=== PATIENT | male | born 1970 | race Caucasian/White ===

== ENCOUNTER → 2021-01-25 | Outpatient (CLI) | payer OTHER ==
--- NOTE | 2021-01-25 11:43 | XR ---
EXAMINATION TYPE: XR spine complete AP and Lat DATE OF EXAM: 01/25/2021 COMPARISON: NONE HISTORY: Chronic pain. TECHNIQUE: Frontal and lateral views of entire spine. FINDINGS: There is slight grade 1 retrolisthesis C4 on C5. There is mild disc space narrowing C6-C7 l evel. Mild anterior spurring and disc space narrowing lower thoracic spine. Focal mild to moderate an terior spurring at L2-L3 level. Disc space heights are maintained and the lumbar spine. Vertebral bod y heights are preserved. Alignment is somewhat straightened in the lower thoracic spine. IMPRESSION: As above.
== END | disposition home or self-care (01) ==
LOC: RADXRMAIN 10:57
PROVIDERS: ATTEND Internal Medicine
DX: M50.323 Other cervical disc degeneration at C6-C7 level (principal); M43.12 Spondylolisthesis, cervical region
CPT/HCPCS: 72082

== ENCOUNTER → 2021-02-13 | Outpatient (CLI) | payer OTHER ==
--- NOTE | 2021-02-14 12:10 | CTL ---
EXAMINATION TYPE: CT Low Dose Lung DATE OF EXAM ORDERED: 02/13/2021 HISTORY: Personal history tobacco use. Lung cancer screening CT DLP: 77.[address] CTDI: 2.2 mGy Automated exposure control for dose reduction was used. SCREENING VISIT: Initial COMPARISON: None TECHNIQUE: Low dose computed tomography scan was performed through the chest at 1 mm thick sections a nd reconstructed images in the coronal plane at [address] DIAGNOSTIC QUALITY: Satisfactory FINDINGS: LUNG NODULES: None. LUNGS: COPD: Severity: Mild. There may be some mild peribronchial thickening compatible some chronic bronchi tis Fibrosis: Severity: None Lymph nodes: None Other findings: None RIGHT PLEURAL SPACE: Effusion: None Calcification: None Thickening: None Pneumothorax: None LEFT PLEURAL SPACE: Effusion: None Calcification: None Thickening: None Pneumothorax: None HEART: Heart Size: Normal Coronary calcification: Minimal Pericardial effusion: None OTHER FINDINGS: Upper abdomen: Normal Bony thorax: Normal Supraclavicular region: Normal Other: Ascending thoracic aorta at the level the main pulmonary artery measures 3.4 cm. The main pul monary artery at the bifurcation measures 3.0 cm. IMPRESSION: Negative low-dose CT chest FOLLOW UP CT CHEST RECOMMENDATION: Follow-up low-dose CT chest [address] LUNG RAD: Lung-Rad 1 Negative
== END | disposition home or self-care (01) ==
LOC: RADCTMAIN 18:27
PROVIDERS: ATTEND Internal Medicine
DX: Z12.2 Encounter for screening for malignant neoplasm of respiratory organs (principal); Z87.891 Personal history of nicotine dependence
CPT/HCPCS: 71271

== ENCOUNTER 2021-04-10 06:48 | Day surgery (SDC) | payer OTHER ==
[~2021-04-10 06:48] MED LIST: LACTATED RINGERS 1,000 ML IV SCH; LIDOCAINE 1% (10MG/ML) FOR IV START INTRADERMA PRN
[2021-04-10 07:26] VITALS: RESP 16; TEMP 97.5
[2021-04-10 07:49] LABS: Glucose,Whole Blood 188 mg/dL (75-99)
[2021-04-10] MEDS ORDERED: PROPOFOL 10 MG/ML 20 ML VIAL IV ONE (08:17)
[2021-04-10] MEDS ORDERED: LIDOCAINE 1% INJ 10MG/ML (20 ML MDV) ONE (08:17)
--- NOTE | 2021-04-10 08:38 | P.PCN ---
Date of Procedure: 04/10/21 Procedure(s) Performed: BRIEF HISTORY: Patient is a 50-year-old pleasant white male scheduled for an elective colonoscopy as a part of screening for colorectal neoplasia. PROCEDURE PERFORMED: Colonoscopy snare polypectomy. PREOPERATIVE DIAGNOSIS: Screening for colon cancer. IV sedation per Anesthesia. PROCEDURE: After informed consent was obtained, the patient, was brought into the endoscopy unit. IV sedation was administered by Anesthesia under continuous monitoring. Digital rectal examination was normal. Initially the Olympus CF-160 flexible video colonoscope was then inserted in the rectum, gradually advanced into the cecum without any difficulty. Careful examination was performed as the scope was gradually being withdrawn. Ileocecal valve and the appendiceal orifice were visualized and appeared normal. Prep was fair.. Mucosa of the cecum, appeared normal. In the ascending colon there were 2 polyps measuring 3 mm and 5 mm in size removed by snare polypectomy. In the transverse colon there were 4 polyps measuring 4-5 mm in size removed by snare polypectomy. Rest of the scattered sigmoid diverticulosis seen. ascending colon, transverse colon, descending colon, sigmoid colon, and rectum appeared normal. Retroflexion was performed in the rectum and small internal hemorrhoids were seen. The patient tolerated the procedure well. IMPRESSION: 3 mm and 5 mm 2 ascending colon polyp status post polypectomy 5 mm 4 transverse colon polyp status post polypectomy Scattered sigmoid diverticulosis Small internal hemorrhoids RECOMMENDATIONS: Findings of this examination were discussed with the patient as well as his family. He was advised to follow with the biopsy results. If the biopsy reveals adenoma he can have a repeat colonoscopy in 3 years.
[2021-04-10 08:59] VITALS: BP 157/86; PULSE 73
== END 2021-04-10 09:41 | disposition home or self-care (01) ==
LOC: ORWHC2ENDO 06:48
PROVIDERS: ATTEND Internal Medicine Gastroenterology
DX: Z12.11 Encounter for screening for malignant neoplasm of colon (principal); D12.2 Benign neoplasm of ascending colon; D12.3 Benign neoplasm of transverse colon; K64.8 Other hemorrhoids; K57.30 Diverticulosis of large intestine without perforation or abscess without bleeding
CPT/HCPCS: 88305; 45385; J2001; J2704

== ENCOUNTER 2021-10-18 18:58 | Emergency (ER) | payer OTHER ==
[2021-10-18 19:05] VITALS: TEMP 98.1
[2021-10-18] MEDS ORDERED: SODIUM CHLORIDE 0.9% 1,000 ML IV STA (20:23)
--- NOTE | 2021-10-18 20:25 | ED ---
Neuro HPI - General Chief Complaint: Extremity Problem,Nontraumatic Stated Complaint: Leg issue Time Seen by Provider: 10/18/21 19:58 Source: patient, RN notes reviewed Mode of arrival: ambulatory Limitations: no limitations - History of Present Illness Is the patient presenting with stroke symptoms?: Yes Last Known Well Date: 10/18/21 Last Known Well Time: 17:00 Initial Comments: This is a 51-year-old diabetic male who presents to the emergency department stating that he has had problems with dizziness and gait for one month. He then states that today he had numbness in his left leg from the knee down. He states the numbness seems to be getting better but he still has some numbness in the foot. He also states that the leg feels weak both at the knee and in the ankle area. There was no injury. Patient denies any other weakness. No vision or hearing disturbance. No slurred speech. No facial weakness. No significant headache - Related Data Home Medications: Home Medications Medication Instructions Recorded Confirmed Atorvastatin [Lipitor] 10 mg PO DAILY 04/08/21 04/10/21 Multivitamins, Thera [Multivitamin 1 tab PO DAILY 04/08/21 04/08/21 (formulary)] Sildenafil Citrate 100 mg PO DAILY PRN 04/08/21 04/10/21 metFORMIN HCL [Glucophage] 500 mg PO QAM 04/08/21 04/10/21 Previous Rx's Medication Instructions Recorded Aspirin 325 mg PO DAILY #30 tab 10/18/21 Magnesium Carb,Citrate,Oxide 300 mg PO DAILY #10 tablet 10/18/21 [Magnesium Complex] Potassium Chloride ER [K-Dur 20] 20 meq PO DAILY #10 tab 10/18/21 Allergies/Adverse Reactions: Allergies Allergy/AdvReac Type Severity Reaction Status Date / Time No Known Allergies Allergy Verified 10/18/21 19:05 Review of Systems ROS Statement: Those systems with pertinent positive or pertinent negative responses have been documented in the HPI. ROS Other: All systems not noted in ROS Statement are negative. General Exam - General Exam Comments Initial Comments: Patient does not appear to be ill or toxic. Limitations: no limitations General appearance: alert, in no apparent distress Head exam: Present: atraumatic, normocephalic, normal inspection Eye exam: Present: normal appearance, PERRL, EOMI. Absent: scleral icterus, con junctival injection, periorbital swelling ENT exam: Present: normal exam, mucous membranes moist Neck exam: Present: normal inspection. Absent: tenderness, meningismus, lymphadenopathy Respiratory exam: Present: normal lung sounds bilaterally. Absent: respiratory distress, wheezes, rales, rhonchi, stridor, chest wall tenderness, accessory muscle use, decreased breath sounds, prolonged expiratory Cardiovascular Exam: Present: regular rate, normal rhythm, normal heart sounds. Absent: systolic murmur, diastolic murmur, rubs, gallop, clicks GI/Abdominal exam: Present: soft, normal bowel sounds. Absent: distended, tenderness, guarding, rebound, rigid Extremities exam: Present: normal inspection, full ROM, normal capillary refill, other (Pulses are 2+ out of 4 with regards to dorsalis pedis and posterior tibial, popliteal pulses are palpable, no erythema, no evidence of vascular compromise. No evidence of infectious process). Absent: tenderness, pedal edema, joint swelling, calf tenderness Back exam: Present: normal inspection, full ROM. Absent: tenderness, muscle spasm, paraspinal tenderness, vertebral tenderness, rash noted Neurological exam: Present: alert, oriented X3, CN II-XII intact, normal gait, motor sensory deficit (Left leg as noted, mild weakness noted as well), reflexes normal. Absent: altered Expanded Neurological exam: Present: protecting the airway Patient oriented to: Present: person, place, time Speech: Present: fluid speech. Absent: receptive aphasia, expressive aphasia, total aphasia, anomia Cranial nerves: EOM's Intact: Normal, Gag Reflex: Normal, Tongue Deviation: Normal, Nystagmus: Normal, Facial Sensation: Normal, Facial Palsy with Forehead Movement: Normal, Facial Palsy without Forehead Movement: Normal Cerebellar function: Finger to Nose: Normal, Heel to Sanders: Normal (Difficult due to left leg weakness), Romberg: Abnormal Left (Difficulty with Romberg) Upper motor neuron: Angel Neglect: Normal, Pronator Drift: Normal, Babinski Sign: Normal, Sensory Extinction: Normal Sensory exam: Upper Extremity Light Touch: Normal, Upper Extremity Pin Prick: Normal, Lower Extremity Light Touch: Normal, Lower Extremity Pin Prick: Abnormal Left (Minimal sensory loss, left lower leg) DTR: Patellar (R): 2+, Patellar (L): 2+, Achilles Tendon (R): 2+, Achilles Tendon (L): 2+ Eye Response: (4) open spontaneously Motor Response: (6) obeys commands Verbal Response: (5) oriented Psychiatric exam: Present: normal affect, normal mood. Absent: depressed, agitated, anxious, flat affect, manic, homicidal ideation, suicidal ideation Skin exam: Present: warm, dry, intact, normal color. Absent: rash, cyanosis, diaphoretic, erythema, urticaria, vesicles, petechiae, pallor, mottled, abrasion Stroke MDM - Lab Data Result diagrams: 10/18/21 20:32 10/18/21 20:32 Lab Results 10/18/21 10/18/21 10/18/21 Range/Units 20:32 20:32 20:32 WBC 7.3 (3.8-10.6) k/uL RBC 4.06 L (4.30-5.90) m/uL Hgb 14.5 (13.0-17.5) gm/dL Hct 42.2 (39.0-53.0) % MCV 103.9 H (80.0-100.0) fL MCH 35.6 H (25.0-35.0) pg MCHC 34.2 (31.0-37.0) g/dL RDW 12.9 (11.5-15.5) % Plt Count 163 (150-450) k/uL MPV 8.4 Neutrophils % 46 % Lymphocytes % 38 % Monocytes % 9 % Eosinophils % 3 % Basophils % 1 % Neutrophils # 3.3 (1.3-7.7) k/uL Lymphocytes # 2.8 (1.0-4.8) k/uL Monocytes # 0.7 (0-1.0) k/uL Eosinophils # 0.2 (0-0.7) k/uL Basophils # 0.1 (0-0.2) k/uL Macrocytosis Slight PT 11.5 (9.0-12.0) sec INR 1.1 (<1.2) APTT 25.3 (22.0-30.0) sec Sodium 144 (137-145) mmol/L Potassium 3.0 L (3.5-5.1) mmol/L Chloride 100 (98-107) mmol/L Carbon Dioxide 24 (22-30) mmol/L Anion Gap 20 mmol/L BUN 15 (9-20) mg/dL Creatinine 0.70 (0.66-1.25) mg/dL Est GFR (CKD-EPI)AfAm >90 (>60 ml/min/1.73 sqM) Est GFR (CKD-EPI)NonAf >90 (>60 ml/min/1.73 sqM) Glucose 88 (74-99) mg/dL Calcium 9.8 (8.4-10.2) mg/dL Magnesium (1.6-2.3) mg/dL Total Bilirubin 1.0 (0.2-1.3) mg/dL GGT (15-73) U/L AST 267 H (17-59) U/L ALT 92 H (4-49) U/L Alkaline Phosphatase 98 (38-126) U/L Troponin I (0.000-0.034) ng/mL Total Protein 8.7 H (6.3-8.2) g/dL Albumin 4.9 (3.5-5.0) g/dL Urine Opiates Screen (NotDetected) Ur Oxycodone Screen (NotDetected) Urine Methadone Screen (NotDetected) Ur Propoxyphene Screen (NotDetected) Ur Barbiturates Screen (NotDetected) U Tricyclic Antidepress (NotDetected) Ur Phencyclidine Scrn (NotDetected) Ur Amphetamines Screen (NotDetected) U Methamphetamines Scrn (NotDetected) U Benzodiazepines Scrn (NotDetected) Urine Cocaine Screen (NotDetected) U Marijuana (THC) Screen (NotDetected) 10/18/21 10/18/21 10/18/21 Range/Units 20:32 21:37 21:47 WBC (3.8-10.6) k/uL RBC (4.30-5.90) m/uL Hgb (13.0-17.5) gm/dL Hct (39.0-53.0) % MCV (80.0-100.0) fL MCH (25.0-35.0) pg MCHC (31.0-37.0) g/dL RDW (11.5-15.5) % Plt Count (150-450) k/uL MPV Neutrophils % % Lymphocytes % % Monocytes % % Eosinophils % % Basophils % % Neutrophils # (1.3-7.7) k/uL Lymphocytes # (1.0-4.8) k/uL Monocytes # (0-1.0) k/uL Eosinophils # (0-0.7) k/uL Basophils # (0-0.2) k/uL Macrocytosis PT (9.0-12.0) sec INR (<1.2) APTT (22.0-30.0) sec Sodium (137-145) mmol/L Potassium (3.5-5.1) mmol/L Chloride (98-107) mmol/L Carbon Dioxide (22-30) mmol/L Anion Gap mmol/L BUN (9-20) mg/dL Creatinine (0.66-1.25) mg/dL Est GFR (CKD-EPI)AfAm (>60 ml/min/1.73 sqM) Est GFR (CKD-EPI)NonAf (>60 ml/min/1.73 sqM) Glucose (74-99) mg/dL Calcium (8.4-10.2) mg/dL Magnesium 1.1 L (1.6-2.3) mg/dL Total Bilirubin (0.2-1.3) mg/dL GGT 1748 H (15-73) U/L AST (17-59) U/L ALT (4-49) U/L Alkaline Phosphatase (38-126) U/L Troponin I <0.012 (0.000-0.034) ng/mL Total Protein (6.3-8.2) g/dL Albumin (3.5-5.0) g/dL Urine Opiates Screen Not Detected (NotDetected) Ur Oxycodone Screen Not Detected (NotDetected) Urine Methadone Screen Not Detected (NotDetected) Ur Propoxyphene Screen Not Detected (NotDetected) Ur Barbiturates Screen Not Detected (NotDetected) U Tricyclic Antidepress Not Detected (NotDetected) Ur Phencyclidine Scrn Not Detected (NotDetected) Ur Amphetamines Screen Not Detected (NotDetected) U Methamphetamines Scrn Not Detected (NotDetected) U Benzodiazepines Scrn Not Detected (NotDetected) Urine Cocaine Screen Not Detected (NotDetected) U Marijuana (THC) Screen Not Detected (NotDetected) - NIH Stroke Scale 1a. Level of Consciousness: (0) alert 1b. LOC Questions: (0) answers correctly 1c. LOC Commands: (0) performs tasks correctly 2. Best Gaze: (0) normal 3. Visual: (0) no visual loss 4. Facial Palsy: (0) normal symmetrical movement 5a. Motor Arm Left: (0) no drift 5b. Motor Arm Right: (0) no drift 6a. Motor Leg Left: (1) drift 6b. Motor Leg Right: (0) no drift 7. Limb Ataxia: (0) absent 8. Sensory: (1) mild/moderate sensory loss 9. Best Language: (0) no aphasia 10. Dysarthria: (0) normal 11. Extinction/Inattention: (0) no abnormality - Thrombolytic Inclusion/Exclusion Thrombolytic Inclusion Criteria: Symptom Onset < 4.5 h - Medical Decision Making The case was discussed in detail with ED attending physician. Presentation, findings, treatment plan discussed in detail. Case discussed with Dr. Odom at 8:22 PM. Code stroke called. An 8 score of 2. Patient's symptoms started at 5 PM. AMA Documentation: I, personally, had a discussion with the patient concerning their presumed diagnoses and my recommendations regarding available options for treatment. The patient understand the risks and benefits of the treatment options presented and also understands the risks of not following these recommendations and leaving the hospital against medical advice. The patient clearly has capacity to make an informed decision regarding further treatment at this time and is electing to sign out against my medical advice. Follow up arrangements were discussed with the patient and the patient was advised to consider returning to the emergency department or seeking further care should they have a worsening of their medical condition, if they should develop new or concerning symptoms, or if they should change their mind about receiving further medical care. Note that this patient is leaving AGAINST MEDICAL ADVICE. Computed tomography scan does show some evidence of chronic sinusitis. he displays no evidence of acute sinusitis. States he does have fairly severe seasonal ALLERGIES. Going to keep the patient on daily aspirin. We'll have the patient supplement his potassium. He'll need to have this rechecked by his regular doctor next week. I did discuss this with him in detail. Again, I did reiterate to the patient we are advising that he is admitted to the hospital for an MRI and neurology consultation. Patient adamantly refusing this. The case was discussed in detail with ED attending physician. Presentation, findings, treatment plan discussed in detail. Supervising physician is Dr. Odom Patient was given aspirin as directed by neurology. Patient was given follow-up instructions despite leaving AGAINST MEDICAL ADVICE. - Radiology Data Radiology results: report reviewed, image reviewed (No acute findings noted on radiographic imaging) No acute findings - EKG Data -: EKG Interpreted by Me (Read by the ED attending physician as well) EKG shows normal: sinus rhythm Rate: normal (87) Interpretation: no acute changes 10/18/21 21:24 Left axis deviation, no acute ST or T-wave changes. Consistent with pulmonary disease. There is some poor R-wave progression. Intervals are normal. Past Medical History Past Medical History: Diabetes Mellitus, Hyperlipidemia History of Any Multi-Drug Resistant Organisms: None Reported Past Surgical History: Appendectomy Past Psychological History: No Psychological Hx Reported Smoking Status: Current every day smoker Past Alcohol Use History: Abuse, Daily, Heavy Past Drug Use History: None Reported Course Vital Signs 10/18/21 10/18/21 19:03 22:37 Temperature 98.1 F Pulse Rate 109 H 89 Respiratory 20 18 Rate Blood Pressure 133/78 124/68 O2 Sat by Pulse 96 98 Oximetry - Reevaluation(s) Reevaluation #1: 10/18/21 21:25 Medical record is reviewed Symptoms are improved here in the emergency department Patient is informed of results and questions answered Patient in no distress Patient neurologically unchanged. NIH score is 2. Reevaluation #2: 10/18/21 21:25 Patient noted to have potassium of 3.0. We'll replace - Consultations Consultation #1: This case was discussed in detail with the on-call neurologist after code stroke was called. He suspects this may be due to peripheral neuropathy. He did suggest giving the patient aspirin, admission, MRI, and reevaluation. Disposition Clinical Impression: Focal neurological deficit, Dizziness, Hypokalemia, Left against medical advice Disposition: Left Against Medical Advice Condition: Stable Instructions (If sedation given, give patient instructions): Hypokalemia (ED), Paresthesia (ED), Dizziness (ED) Additional Instructions: Follow-up with your regular physician as directed. Return to the ER immediately if any symptoms worsen, new symptoms arise, or any other problems develop. Take the aspirin, 325 mg daily. Take the potassium supplementation. Call Eduardo morning to your regular doctor. You need to have her potassium rechecked next week. Also make an appointment with a neurologist as discussed. Prescriptions: Aspirin 325 mg PO DAILY #30 tab Potassium Chloride ER [K-Dur 20] 20 meq PO DAILY #10 tab Magnesium Carb,Citrate,Oxide [Magnesium Complex] 300 mg PO DAILY #10 tablet Is patient prescribed a controlled substance at d/c from ED?: No Referrals: Courtney Parra MD [Primary Care Provider] - As Soon As Possible Lori Galvan MD [REFERRING] - As Soon As Possible Time of Disposition: 22:09
[2021-10-18 20:36] LABS: Basophils # (A) 0.1 k/uL (0-0.2); Basophils % (A) 1 %; Eosinophils # (A) 0.2 k/uL (0-0.7); Eosinophils % (A) 3 %; HCT 42.2 % (39.0-53.0); HGB 14.5 gm/dL (13.0-17.5); Lymphocytes # (A) 2.8 k/uL (1.0-4.8); Lymphocytes % (A) 38 %; MCH 35.6 pg (25.0-35.0); MCHC 34.2 g/dL (31.0-37.0); MCV 103.9 fL (80.0-100.0); Macrocytosis Slight; Mean Platelet Volume 8.4; Monocytes # (A) 0.7 k/uL (0-1.0); Monocytes % (A) 9 %; Neutrophils # (A) 3.3 k/uL (1.3-7.7); Neutrophils % (A) 46 %; Platelet Count 163 k/uL (150-450); RBC 4.06 m/uL (4.30-5.90); RDW 12.9 % (11.5-15.5); WBC 7.3 k/uL (3.8-10.6)
[2021-10-18 20:46] LABS: ALT 92 U/L (4-49); AST 267 U/L (17-59); African American GFR (CKD) >90 (>60 ml/min/1.73 sqM); Albumin 4.9 g/dL (3.5-5.0); Alkaline Phosphatase 98 U/L (38-126); Anion Gap 20 mmol/L; Blood Urea Nitrogen 15 mg/dL (9-20); Calcium 9.8 mg/dL (8.4-10.2); Carbon Dioxide 24 mmol/L (22-30); Chloride 100 mmol/L (98-107); Glucose 88 mg/dL (74-99); Non-African American GFR(CKD) >90 (>60 ml/min/1.73 sqM); Sodium 144 mmol/L (137-145); Total Protein 8.7 g/dL (6.3-8.2)
[2021-10-18 20:51] LABS: INR 1.1 (<1.2); Partial Thromboplastin Time 25.3 sec (22.0-30.0); Prothrombin Time 11.5 sec (9.0-12.0)
[2021-10-18] MEDS ORDERED: POTASSIUM CHLORIDE ER 20 MEQ TAB.ER PO STA (21:24)
--- NOTE | 2021-10-18 21:28 | CT ---
EXAMINATION TYPE: CT brain wo con for TPA CT DLP: 1717.5 mGycm, Automated exposure control for dose reduction was used. DATE OF EXAM: 10/18/2021 8:43 PM COMPARISON: None. CLINICAL INDICATION:Male, 51 years old with history of Neuro deficit, acute, stroke suspected, Neuro deficit, acute, stroke suspected TECHNIQUE: Brain: Multiple axial CT images of the brain were obtained without IV contrast. FINDINGS: Brain: Extra-axial spaces: No abnormal extra-axial fluid collections. Ventricular system: Within normal limits Cerebral parenchyma: No acute intraparenchymal hemorrhage or mass effect. The ahumada-white junction is well differentiated. Cerebellum: Unremarkable. Mass effect: No evidence of midline shift. Intracranial vasculature: Atherosclerotic calcifications of the intracranial vessels. Soft tissues: Normal. Calvarium/osseous structures: No depressed skull fracture. Paranasal sinuses and mastoid air cells: Moderate near complete opacification of the right maxillary sinus along with opacified ethmoid air cells. Calculus of bilaterally. Visualized orbits: Orbital contents are intact. IMPRESSION: 1. No acute intracranial process. 2. Paranasal sinus disease correlate for acute sinusitis.
[2021-10-18] MEDS ORDERED: MAGNESIUM SULFATE-D5W PMX 1 GM in DEXTROSE/WATER 1 100ML.BAG IVPB SCH (21:30)
--- NOTE | 2021-10-18 21:30 | CT ---
EXAMINATION TYPE: CT angio head neck CT DLP: 1717.5 combined mGycm, Automated exposure control for dose reduction was used. DATE OF EXAM: 10/18/2021 9:08 PM COMPARISON: CT brain same day. CLINICAL INDICATION:Male, 51 years old with history of Neuro deficit, acute, stroke suspected, TECHNIQUE: Axially acquired helical CT angiogram of the head and neck was obtained with contrast util izing 75 cc of Isovue-370 administered intravenously. Axial images are supplemented with 3D reconstru ctions which were post-processed at an independent workstation. NASCET criteria used. FINDINGS: CTA HEAD: No evidence of acute intracranial hemorrhage, mass effect, or midline shift. The ventricles, sulci, a nd cisterns are unremarkable. The visualized portions of the internal carotid arteries, middle cerebral arteries, anterior cerebral arteries, and posterior cerebral arteries are patent. The basilar and vertebral arteries are patent. CTA NECK: Right Carotid System: The common carotid artery and external carotid artery are patent. The carotid bifurcation demonstrate s no evidence of hemodynamically significant stenosis. The remaining portions of the internal carotid artery demonstrate normal size without significant narrowing. Left Carotid System: The common carotid artery and external carotid artery are patent. The carotid bifurcation demonstrate s no evidence of hemodynamically significant stenosis. The remaining portions of the internal carotid artery demonstrate normal size without significant narrowing. Vertebral arteries are patent without evidence hemodynamically significant stenosis. There is a three-vessel aortic arch. The origins of the great vessels are patent. No evidence of hemo dynamically significant stenosis. IMPRESSION: 1. No evidence of dissection of the cervical internal carotid arteries or vertebral arteries or any e vidence of significant stenosis at the carotid bifurcations. 2. No evidence of high-grade stenosis or intracranial aneurysm.
--- NOTE | 2021-10-18 21:39 | XR ---
EXAMINATION TYPE: XR chest 1V portable DATE OF EXAM: 10/18/2021 9:23 PM COMPARISON: None TECHNIQUE: XR chest 1V portable Frontal view of the chest. CLINICAL INDICATION:Male, 51 years old with history of altered mental status; FINDINGS: Lungs/Pleura: There is no evidence of pleural effusion, focal consolidation, or pneumothorax. Pulmonary vascularity: Unremarkable. Heart/mediastinum: Cardiomediastinal silhouette is unremarkable. Musculoskeletal: No acute osseous pathology. IMPRESSION: No acute cardiopulmonary disease/process.
[2021-10-18 21:58] LABS: Magnesium 1.1 mg/dL (1.6-2.3)
[2021-10-18] MEDS ORDERED: ASPIRIN 325 MG TAB PO STA (22:08)
[2021-10-18 22:20] LABS: Amphetamine Screen,Urine Not Detected (NotDetected); Barbiturate Screen,Urine Not Detected (NotDetected); Benzodiazepines Screen,Urine Not Detected (NotDetected); Cocaine Screen,Urine Not Detected (NotDetected); Methadone Screen, Urine Not Detected (NotDetected); Opiate Screen,Urine Not Detected (NotDetected); Oxycodone Screen, Urine Not Detected (NotDetected); Phencyclidine Screen,Urine Not Detected (NotDetected); Tricyclic Antidepressant,Urine Not Detected (NotDetected); Urn Cannabinoid Scrn Not Detected (NotDetected)
[2021-10-18 22:38] VITALS: BP 124/68; PULSE 89; RESP 18
== END 2021-10-18 22:38 | disposition left against medical advice (07) ==
LOC: EC 18:58
DX: I63.89 Other cerebral infarction (principal); E87.6 Hypokalemia; E78.5 Hyperlipidemia, unspecified; E11.9 Type 2 diabetes mellitus without complications; F17.200 Nicotine dependence, unspecified, uncomplicated
CPT/HCPCS: 36415; 80053; 82977; 83735; 84484; 85025; 85610; 85730; 80306; 71045; 70496; 70450; 70498; 99285; 96365; 96361; J3475; Q9967; 93005

== ENCOUNTER 2022-01-03 07:22 | Observation (INO) | payer OTHER ==
[2022-01-03] MEDS ORDERED: SODIUM CHLORIDE 0.9% 1,000 ML IV ONE (07:36)
--- NOTE | 2022-01-03 07:43 | ED ---
General Adult HPI - General Chief complaint: Fall Stated complaint: Weakness, poss neuro issue Time Seen by Provider: 01/03/22 07:25 Source: patient, RN notes reviewed, old records reviewed Mode of arrival: ambulatory Limitations: physical limitation - History of Present Illness Initial comments: 51-year-old male, alert and oriented presents via EMS after being found down. Patient states that he kept falling down because he has history of left-sided weakness. He states was in rehab at [facility] and was having delusions and was transferred to [facility] yesterday. Patient states he has not had an alcoholic beverage in 9 days. He was a daily drinker, a couple pints of vodka a day. He states was discharged from [facility] last night and states was trying to walk home when he kept falling. Patient sustained abrasions to his left elbow and left knee and left great toe. He states he was told he had a stroke here in October that caused his left-sided weakness. Denies any drug use. -: hour(s) Location: chest, left, upper extremity, lower extremity (Elbow and knee) Radiation: non-radiation Quality: aching Consistency: constant Improves with: immobilization Worsens with: movement Associated Symptoms: confusion, weakness (Left-sided weakness recent stroke) - Related Data Home Medications Medication Instructions Recorded Confirmed Atorvastatin [Lipitor] 10 mg PO DAILY 04/08/21 04/10/21 Multivitamins, Thera [Multivitamin 1 tab PO DAILY 04/08/21 04/08/21 (formulary)] Sildenafil Citrate 100 mg PO DAILY PRN 04/08/21 04/10/21 metFORMIN HCL [Glucophage] 500 mg PO QAM 04/08/21 04/10/21 Previous Rx's Medication Instructions Recorded Aspirin 325 mg PO DAILY #30 tab 10/18/21 Magnesium Carb,Citrate,Oxide 300 mg PO DAILY #10 tablet 10/18/21 [Magnesium Complex] Potassium Chloride ER [K-Dur 20] 20 meq PO DAILY #10 tab 10/18/21 Allergies Allergy/AdvReac Type Severity Reaction Status Date / Time No Known Allergies Allergy Verified 01/03/22 07:32 Review of Systems ROS Statement: Those systems with pertinent positive or pertinent negative responses have been documented in the HPI. ROS Other: All systems not noted in ROS Statement are negative. Past Medical History Past Medical History: Diabetes Mellitus, Hyperlipidemia History of Any Multi-Drug Resistant Organisms: None Reported Past Surgical History: Appendectomy Past Psychological History: No Psychological Hx Reported Smoking Status: Current every day smoker Past Alcohol Use History: Abuse, Daily, Heavy Past Drug Use History: None Reported General Exam Limitations: physical limitation General appearance: alert, in no apparent distress Head exam: Present: atraumatic Eye exam: Present: normal appearance, EOMI. Absent: scleral icterus, conjunctival injection, periorbital swelling, periorbital tenderness ENT exam: Present: normal exam, normal oropharynx, mucous membranes moist Expanded Mouth exam: Present: normal external inspection, tongue normal, tongue elevation. Absent: drooling, trismus, muffled voice Neck exam: Present: normal inspection, full ROM. Absent: tenderness, meningismus, lymphadenopathy Respiratory exam: Present: normal lung sounds bilaterally, chest wall tenderness (left anterior ). Absent: respiratory distress, wheezes, rales, rhonchi, stridor, accessory muscle use Cardiovascular Exam: Present: tachycardia GI/Abdominal exam: Present: soft, tenderness (diffuse). Absent: guarding, rigid Extremities exam: Present: full ROM, tenderness (left knee and left elbow), normal capillary refill. Absent: pedal edema, calf tenderness Back exam: Absent: tenderness, CVA tenderness (R), CVA tenderness (L), paraspinal tenderness, vertebral tenderness, rash noted Neurological exam: Present: alert, oriented X3 Expanded Patient oriented to: Present: person, place, time Speech: Present: fluid speech Cranial nerves: Gag Reflex: Normal, Tongue Deviation: Normal Cerebellar function: Heel to Sanders: Abnormal Left, Romberg: Normal Upper motor neuron: Pronator Drift: Normal Motor strength exam: RUE: 5, LUE: 4, RLE: 5, LLE: 4 Eye Response: (4) open spontaneously Motor Response: (6) obeys commands Verbal Response: (5) oriented [place] Total: 15 Psychiatric exam: Present: normal affect, normal mood Skin exam: Present: warm, dry, normal color, abrasion (Left elbow left knee and left great toe). Absent: cyanosis, diaphoretic Course Vital Signs 01/03/22 01/03/22 07:28 09:11 Temperature 98.5 F Pulse Rate 104 H 88 Respiratory 18 20 Rate Blood Pressure 123/79 141/102 O2 Sat by Pulse 98 99 Oximetry EKG Findings - EKG Results: EKG: sinus rhythm (Ventricular rate 93, [place] interval 0.179, QRS 0.97, QTC 0.445; left axis deviation) Medical Decision Making - Medical Decision Making Patient presents with altered mental status and multiple falls. States that he is in rehab for alcohol abuse and has not had a drink in 9 days. Per EMS patient was just discharged from [facility] last night. Medical records were obtained and patient had eloped from [facility]. CT shows no cervical spine fracture. No intracranial hemorrhage or midline shift. Chest x-ray shows cardiomegaly without acute pulmonary process no significant change from October 18 of this year. X-ray of the left elbow shows no acute fracture or dislocation. X-ray of the left knee shows joint space loss but no acute fracture or dislocation. Alcohol level, negative. UA positive for benzodiazepines. Labs show magnesium is 0.9 patient was given supplementation. LFTs are elevated and patient is complaining of diffuse abdominal pain. CT the abdomen shows no evidence of bowel obstruction. Hepatomegaly with fatty infiltrative hepatocellular disease is noted. No surrounding ascites or biliary dilatation. Patient will be admitted to the hospital for hypomagnesemia with frequent falls. Patient is agreeable to this plan of care. Case discussed with Dr. Adams. - Lab Data Result diagrams: 01/03/22 07:50 01/03/22 07:50 Lab Results 01/03/22 01/03/22 01/03/22 Range/Units 07:50 07:50 07:50 WBC 5.2 (3.8-10.6) k/uL RBC 3.99 L (4.30-5.90) m/uL Hgb 14.2 (13.0-17.5) gm/dL Hct 42.1 (39.0-53.0) % MCV 105.4 H (80.0-100.0) fL MCH 35.5 H (25.0-35.0) pg MCHC 33.7 (31.0-37.0) g/dL RDW 13.1 (11.5-15.5) % Plt Count 97 L (150-450) k/uL MPV 9.2 Neutrophils % 73 % Lymphocytes % 17 % Monocytes % 7 % Eosinophils % 1 % Basophils % 1 % Neutrophils # 3.8 (1.3-7.7) k/uL Lymphocytes # 0.9 L (1.0-4.8) k/uL Monocytes # 0.4 (0-1.0) k/uL Eosinophils # 0.1 (0-0.7) k/uL Basophils # 0.0 (0-0.2) k/uL Manual Slide Review Performed Macrocytosis Slight PT 12.8 H (9.0-12.0) sec INR 1.2 H (<1.2) APTT 23.9 (22.0-30.0) sec Sodium (137-145) mmol/L Potassium (3.5-5.1) mmol/L Chloride (98-107) mmol/L Carbon Dioxide (22-30) mmol/L Anion Gap mmol/L BUN (9-20) mg/dL Creatinine (0.66-1.25) mg/dL Est GFR (CKD-EPI)AfAm (>60 ml/min/1.73 sqM) Est GFR (CKD-EPI)NonAf (>60 ml/min/1.73 sqM) Glucose (74-99) mg/dL Calcium (8.4-10.2) mg/dL Magnesium (1.6-2.3) mg/dL Total Bilirubin (0.2-1.3) mg/dL AST (17-59) U/L ALT (4-49) U/L Alkaline Phosphatase (38-126) U/L Troponin I (0.000-0.034) ng/mL Total Protein (6.3-8.2) g/dL Albumin (3.5-5.0) g/dL Urine Color Urine Appearance (Clear) Urine pH (5.0-8.0) Ur Specific [place] (1.001-1.035) Urine Protein (Negative) Urine Glucose (UA) (Negative) Urine Ketones (Negative) Urine Blood (Negative) Urine Nitrite (Negative) Urine Bilirubin (Negative) Urine Urobilinogen (<2.0) mg/dL Ur Leukocyte Esterase (Negative) Urine RBC (0-5) /hpf Urine WBC (0-5) /hpf Ur Squamous Epith Cells (0-4) /hpf Urine Mucus (None) /hpf Urine Opiates Screen Not Detected (NotDetected) Ur Oxycodone Screen Not Detected (NotDetected) Urine Methadone Screen Not Detected (NotDetected) Ur Propoxyphene Screen Not Detected (NotDetected) Ur Barbiturates Screen Not Detected (NotDetected) U Tricyclic Antidepress Not Detected (NotDetected) Ur Phencyclidine Scrn Not Detected (NotDetected) Ur Amphetamines Screen Not Detected (NotDetected) U Methamphetamines Scrn Not Detected (NotDetected) U Benzodiazepines Scrn Detected H (NotDetected) Urine Cocaine Screen Not Detected (NotDetected) U Marijuana (THC) Screen Not Detected (NotDetected) Serum Alcohol mg/dL 01/03/22 01/03/22 01/03/22 Range/Units 07:50 07:50 07:50 WBC (3.8-10.6) k/uL RBC (4.30-5.90) m/uL Hgb (13.0-17.5) gm/dL Hct (39.0-53.0) % MCV (80.0-100.0) fL MCH (25.0-35.0) pg MCHC (31.0-37.0) g/dL RDW (11.5-15.5) % Plt Count (150-450) k/uL MPV Neutrophils % % Lymphocytes % % Monocytes % % Eosinophils % % Basophils % % Neutrophils # (1.3-7.7) k/uL Lymphocytes # (1.0-4.8) k/uL Monocytes # (0-1.0) k/uL Eosinophils # (0-0.7) k/uL Basophils # (0-0.2) k/uL Manual Slide Review Macrocytosis PT (9.0-12.0) sec INR (<1.2) APTT (22.0-30.0) sec Sodium 139 (137-145) mmol/L Potassium 3.0 L (3.5-5.1) mmol/L Chloride 98 (98-107) mmol/L Carbon Dioxide 22 (22-30) mmol/L Anion Gap 19 mmol/L BUN 14 (9-20) mg/dL Creatinine 0.71 (0.66-1.25) mg/dL Est GFR (CKD-EPI)AfAm >90 (>60 ml/min/1.73 sqM) Est GFR (CKD-EPI)NonAf >90 (>60 ml/min/1.73 sqM) Glucose 192 H (74-99) mg/dL Calcium 9.8 (8.4-10.2) mg/dL Magnesium 0.9 L* (1.6-2.3) mg/dL Total Bilirubin 3.4 H (0.2-1.3) mg/dL AST 272 H (17-59) U/L ALT 76 H (4-49) U/L Alkaline Phosphatase 130 H (38-126) U/L Troponin I <0.012 (0.000-0.034) ng/mL Total Protein 8.4 H (6.3-8.2) g/dL Albumin 4.6 (3.5-5.0) g/dL Urine Color Dark Yellow Urine Appearance Clear (Clear) Urine pH 6.5 (5.0-8.0) Ur Specific [place] 1.024 (1.001-1.035) Urine Protein 1+ H (Negative) Urine Glucose (UA) Negative (Negative) Urine Ketones 2+ H (Negative) Urine Blood Small H (Negative) Urine Nitrite Negative (Negative) Urine Bilirubin 1+ H (Negative) Urine Urobilinogen >12.0 (<2.0) mg/dL Ur Leukocyte Esterase Negative (Negative) Urine RBC 31 H (0-5) /hpf Urine WBC 3 (0-5) /hpf Ur Squamous Epith Cells <1 (0-4) /hpf Urine Mucus Moderate H (None) /hpf Urine Opiates Screen (NotDetected) Ur Oxycodone Screen (NotDetected) Urine Methadone Screen (NotDetected) Ur Propoxyphene Screen (NotDetected) Ur Barbiturates Screen (NotDetected) U Tricyclic Antidepress (NotDetected) Ur Phencyclidine Scrn (NotDetected) Ur Amphetamines Screen (NotDetected) U Methamphetamines Scrn (NotDetected) U Benzodiazepines Scrn (NotDetected) Urine Cocaine Screen (NotDetected) U Marijuana (THC) Screen (NotDetected) Serum Alcohol <10 mg/dL Disposition Clinical Impression: Fall, Hypomagnesemia, Elevated liver enzymes Disposition: ADMITTED IP TO THIS [facility] Referrals: Courtney Parra MD [Primary Care Provider] - 1-2 days Decision Date: 01/03/22 Decision Time: 09:25
[2022-01-03 08:08] LABS: Basophils % (A) 1 %; Eosinophils # (A) 0.1 k/uL (0-0.7); Eosinophils % (A) 1 %; HCT 42.1 % (39.0-53.0); HGB 14.2 gm/dL (13.0-17.5); Lymphocytes # (A) 0.9 k/uL (1.0-4.8); Lymphocytes % (A) 17 %; MCH 35.5 pg (25.0-35.0); MCHC 33.7 g/dL (31.0-37.0); MCV 105.4 fL (80.0-100.0); Macrocytosis Slight; Mean Platelet Volume 9.2; Monocytes # (A) 0.4 k/uL (0-1.0); Monocytes % (A) 7 %; Neutrophils # (A) 3.8 k/uL (1.3-7.7); Neutrophils % (A) 73 %; RBC 3.99 m/uL (4.30-5.90); RDW 13.1 % (11.5-15.5); WBC 5.2 k/uL (3.8-10.6)
[2022-01-03 08:09] LABS: INR 1.2 (<1.2); Partial Thromboplastin Time 23.9 sec (22.0-30.0); Prothrombin Time 12.8 sec (9.0-12.0)
[2022-01-03 08:29] LABS: ALT 76 U/L (4-49); AST 272 U/L (17-59); African American GFR (CKD) >90 (>60 ml/min/1.73 sqM); Albumin 4.6 g/dL (3.5-5.0); Alcohol <10 mg/dL; Alkaline Phosphatase 130 U/L (38-126); Anion Gap 19 mmol/L; Blood Urea Nitrogen 14 mg/dL (9-20); Calcium 9.8 mg/dL (8.4-10.2); Carbon Dioxide 22 mmol/L (22-30); Chloride 98 mmol/L (98-107); Glucose 192 mg/dL (74-99); Non-African American GFR(CKD) >90 (>60 ml/min/1.73 sqM); Sodium 139 mmol/L (137-145); Total Bilirubin 3.4 mg/dL (0.2-1.3); Total Protein 8.4 g/dL (6.3-8.2)
--- NOTE | 2022-01-03 08:36 | CT ---
EXAMINATION TYPE: CT brain cspine wo con DATE OF EXAM: 01/03/2022 COMPARISON: CT brain October 18, 2021 HISTORY: Fall injury with headache and neck pain. CT DLP: 1497.5 mGycm. Automated Exposure Control for Dose Reduction was Utilized. TECHNIQUE: CT scan of the head and cervical spine are performed without contrast. FINDINGS: There is no acute intracranial hemorrhage or midline shift identified. Mild to moderate v entricular and sulcal prominence is present. The calvarium is intact. Figueroa-white matter differentiati on fairly well-maintained. Patchy opacification of the ethmoid sinuses bilaterally redemonstrated imp roved from prior. Mild/moderate mucosal thickening and some patchy fluid in the right maxillary sinus improved from prior. Globes are intact bilaterally. Cervical spine is visualized in its entirety from C1 through upper thoracic levels and demonstrates s atisfactory alignment without evidence of acute fracture or dislocation. Prevertebral soft tissue ap pears within normal limits. The C1-C2 articulation is within normal limits on the coronal images. V ertebral body heights are maintained. Mild disc space narrowing C6-C7 level. Spinal canal grossly pre served. Thyroid gland appears within normal limits. Lung apices show no pneumothorax. IMPRESSION: 1. There is no acute fracture or dislocation evident in the cervical spine. 2. No acute intracranial hemorrhage or midline shift is seen.
[2022-01-03 08:41] LABS: Magnesium 0.9 mg/dL (1.6-2.3)
[2022-01-03] MEDS ORDERED: Magnesium Replacement Protocol 1 EACH MISC MISCELLANE PRN (08:42)
[2022-01-03] MEDS ORDERED: POTASSIUM CHLORIDE ER 20 MEQ TAB.ER PO STA (08:43)
[2022-01-03 08:44] LABS: Platelet Count 97 k/uL (150-450)
[2022-01-03 08:52] LABS: Appearance,Urine Clear (Clear); Bilirubin,Urine 1+ (Negative); Blood,Urine Small (Negative); Color,Urine Dark Yellow; Glucose,Urine (UA) Negative (Negative); Ketones,Urine 2+ (Negative); Leukocyte Esterase,Urine Negative (Negative); Mucus,Urine Moderate /hpf; Nitrite,Urine Negative (Negative); PH, Urine 6.5 (5.0-8.0); Protein,Urine 1+ (Negative); RBC,Urine 31 /hpf (0-5); Specific Gravity,Urine 1.024 (1.001-1.035); Squamous Epithelial Cell,Urine <1 /hpf (0-4); Urobilinogen,Urine >12.0 mg/dL (<2.0); WBC,Urine 3 /hpf (0-5)
--- NOTE | 2022-01-03 08:52 | XR ---
EXAMINATION TYPE: XR knee complete LT DATE OF EXAM: 01/03/2022 CLINICAL HISTORY: Pain. TECHNIQUE: Three views of the left knee are obtained. COMPARISON: None. FINDINGS: There is no acute fracture/dislocation evident in left knee. Mild to moderate tricompartme nt joint space loss. No significant spurring. The overlying soft tissue appears unremarkable. IMPRESSION: As above.
--- NOTE | 2022-01-03 08:52 | XR ---
EXAMINATION TYPE: XR chest 2V DATE OF EXAM: 01/03/2022 COMPARISON: Chest x-ray October 18, 2021 HISTORY: Altered mental status and weakness. TECHNIQUE: Upright Frontal and lateral views of the chest are obtained. FINDINGS: There is no suspicious new focal air space opacity, pleural effusion, or pneumothorax seen . The cardiac silhouette size is stable and enlarged. The osseous structures are intact. Overlying bilateral metallic nipple ornaments are redemonstrated IMPRESSION: Cardiomegaly without acute pulmonary process. No significant change from prior.
--- NOTE | 2022-01-03 08:53 | XR ---
EXAMINATION TYPE: XR elbow complete LT DATE OF EXAM: 01/03/2022 CLINICAL HISTORY: Pain. TECHNIQUE: Frontal, lateral and oblique images of the left elbow are obtained. COMPARISON: None FINDINGS: There is no acute fracture/dislocation evident in the left elbow. No abnormal fat pad sig ns are seen. Cubital fossa peripheral IV incidentally noted. IMPRESSION: As above.
[2022-01-03 08:55] LABS: Amphetamine Screen,Urine Not Detected (NotDetected); Barbiturate Screen,Urine Not Detected (NotDetected); Benzodiazepines Screen,Urine Detected (NotDetected); Cocaine Screen,Urine Not Detected (NotDetected); Methadone Screen, Urine Not Detected (NotDetected); Opiate Screen,Urine Not Detected (NotDetected); Oxycodone Screen, Urine Not Detected (NotDetected); Phencyclidine Screen,Urine Not Detected (NotDetected); Tricyclic Antidepressant,Urine Not Detected (NotDetected); Urn Cannabinoid Scrn Not Detected (NotDetected)
[2022-01-03] MEDS: MAGNESIUM SULFATE-D5W PMX 1 GM in DEXTROSE/WATER 1 100ML.BAG IVPB SCH ×4 (09:07→12:40)
--- NOTE | 2022-01-03 09:22 | CT ---
EXAMINATION TYPE: CT abdomen pelvis w con DATE OF EXAM: 01/03/2022 COMPARISON: None. HISTORY: Upper and lower Abdominal pain. Recent several falls. CT DLP: 958.5 mGycm, Automated Exposure Control for Dose Reduction was Utilized. CONTRAST: CT scan of the abdomen and pelvis is performed without oral and with IV Contrast, patient injected wi th 100 mL of Isovue 300. FINDINGS: LUNG BASES: No significant abnormality is appreciated. LIVER/GB: Visualized liver heterogeneously hypodense consistent with fatty infiltrative hepatocellula r disease. Hepatomegaly is present. No surrounding ascites. No biliary dilatation. PANCREAS: No significant abnormality is seen. SPLEEN: No significant abnormality is seen. ADRENALS: No significant abnormality is seen. KIDNEYS: No significant abnormality is seen. BOWEL: Suboptimal evaluation without enteric contrast. Stomach poorly distended and suboptimally eval uated. No suspicious small or large bowel dilatation. PROSTATE/SEMINAL VESICLES: No gross abnormality seen. LYMPH NODES: No greater than 1cm abdominal or pelvic lymph nodes are appreciated. OSSEOUS STRUCTURES: No significant abnormality is seen. OTHER: No significant additional abnormality is seen. IMPRESSION: No significant acute finding is seen to account for patient's clinical symptoms. No riley l obstruction is present. Hepatomegaly with fatty infiltrative hepatocellular disease is noted.
[2022-01-03] MEDS ORDERED: ONDANSETRON 4 MG/2 ML VIAL IVP PRN (09:31)
[2022-01-03] MEDS ORDERED: NALOXONE 0.4 MG/ML 1 ML VIAL IV PRN (09:31)
[2022-01-03] MEDS: PANTOPRAZOLE 40 MG/10 ML VIAL IV SCH (10:05)
[2022-01-03] MEDS: SODIUM CHLORIDE 0.9% 1,000 ML IV SCH (10:05)
[2022-01-03] MEDS ORDERED: KETOROLAC 15 MG/ML 1 ML VIAL IVP STA (10:34)
[2022-01-03] MEDS: HYDROcodone/APAP 5-325MG 1 EACH TAB PO PRN ×2 (11:47→17:49)
[2022-01-03] MEDS ORDERED: MELATONIN 3 MG TABLET PO PRN (12:07)
[2022-01-03] MEDS ORDERED: ACETAMINOPHEN TAB 325 MG TAB PO PRN (12:07)
--- NOTE | 2022-01-03 12:13 | P.HPIM ---
History of Present Illness H&P Date: 01/03/22 Chief Complaint: falls Patient is a 51 yo male with DM, HTN, and alcoholism who presented to the ED via EMS for falls and weakness. Patient was found outside on ground and was confused and unable to stand. In the Emergency department he underwent an extensive evaluation. On arrival he was slightly tachycardiac with a HR of 104. Initial labs were remarkable for plt 97, INR 1.2, K+ 3, Magnesium 0.9, T. bili 3.4, ast 272, alt 76, and alk phos 130. UDS was positive for benzodiazepines. Alcohol level was undetectable. CT head and cervical spine showed no acute fracture or dislocation of the cervical spine and no acute intrancranial hemorrhage. CXR shows no acute process. Elbow x-ray shows no acute fracture.Knee x-ray mild to moderate tricompartment joint space loss. CT abd and pelvis no acute finding hepatomegally with infiltrative hepatocellular disease.EKG show sinus arrhythmia. In the ED he was given magnesium and potassium replacements. Arrangements were made for observation. Patient initially told me that he has been living at a big house and that 2 people just left. He also initally tells me that he has been at [facility], [facility], and [facility]. He then says he was not a patient at those places. Records were received from [facility] and he left AMA form their ER this morning. He left before they called [facility]. Patient seen and examined at bedside. He reports thats that he has been falling alot. He states that he has been tripping over his left foot. He reports that his left foot numbness and weakness started years years ago after he was drinking a fifth daily. He reports that recently he has been experiencing some numbness in his right foot. He states that he isn't falling. He reports that his last drink was 9 weeks ago. He reports back pain that has been chronic for years and unremitting. He states he has fallen multiple times possibly 20 times. He was initially confused about where he was at menses was at [facility]. He reports constipation but has been able to have bowel movements on his own and has not been using laxatives. He denies any dysuria. He denies any syncope, lightheadedness, dizziness, chest pain, shortness of breath. He denies any nausea or vomiting. He reports that he follows with Dr. Parra his primary care physician that his hypertension and diabetes are well controlled. He states that he has not been evaluated for his left lower extremity weakness. Pertinent positives and negatives as discussed in HPI, a complete review of systems was performed and all other systems are negative. Vital signs reviewed General: nontoxic, no distress, appears at stated ag, disheveled Derm: warm, dry, abrasion on his left knee, abrasion on hif left great toe. Head: atraumatic, normocephalic, symmetric Eyes: EOMI, no lid lag, anicteric sclera, pupils equal round reactive to light ENT: Nose and ears atraumatic, no thrush, no pharyngeal erythema Neck: No thyromegaly, no cervical lymphadenopathy, trachea midline, supple Mouth: no lip lesion, mucus membranes moist Cardiovascular: S1S2 reg, no murmur, positive posterior tibial pulse bilateral, no edema, capillary refill less than 2 seconds Lungs: clear to auscultation bilateral, no rhonchi, no rales, no wheeze, no accessory muscle use Abdominal: soft, nontender to palpation, no guarding, no appreciable organomegaly, normal bowel sounds Ext: no gross muscle atrophy, muscle strength 5 out of 5 upper extremities, hip flexion 5/5 b/l, dorsiand plantar fleion 5/5 in R foot, 0/5 in left foot- appears to be able to move foot and bear weight on it when shifting in bed. No contracture Neuro: CN II-XII grossly intact, light touch intact all 4 extremities and feet, finger to nose within normal limits, Psych: Alert, oriented, appropriate affect Assessment/Plan: Weakness Multiple falls Hypomagnesemia, Hypokalemia - replace Mg and potassium - consult PT/OT - Thiamine supplementation - check B 1 level Possible foot drop on left - appears chronic per patient - outpatient work-up Tobacco - replacement - cessation Thrombocytopenia - likely due to ETOH intoxication Transaminitis - suspect due to ETOH use - Liver US without fatty infiltration - check hepatitis profile Recent ETOH abuse - thiamine, folic acid The patient is admitted with an anticipated less than 2 midnight stay for evaluation of falls. Surrogate decision-maker: CODE STATUS:full DVT prophylaxis: SCDs Discussed with: PT, ED provider Anticipated discharge date: in AM Anticipated discharge place: home A total of 65 minutes was spent on the care of this complex patient more than 50% of the time was spent in counseling and care coordination. Past Medical History Past Medical History: Diabetes Mellitus, Hyperlipidemia History of Any Multi-Drug Resistant Organisms: None Reported Past Surgical History: Appendectomy Past Psychological History: No Psychological Hx Reported Smoking Status: Current every day smoker Past Alcohol Use History: Abuse, Daily, Heavy Past Drug Use History: None Reported - Past Family History Father Additional Family Medical History / Comment(s): prostate cancer Medications and Allergies Home Medications Medication Instructions Recorded Confirmed Type Atorvastatin [Lipitor] 10 mg PO DAILY 04/08/21 01/03/22 History Aspirin 325 mg PO DAILY #30 tab 10/18/21 01/03/22 Rx Potassium Chloride ER [K-Dur 20] 20 meq PO DAILY #10 tab 10/18/21 01/03/22 Rx Famotidine 20 mg PO DAILY 01/03/22 01/03/22 History Insulin Glargine,Hum.rec.anlog 10 units SQ DAILY 01/03/22 01/03/22 History [Lantus Solostar Pen] metFORMIN HCL [Glucophage] 1,000 mg PO BID 01/03/22 01/03/22 History Allergies Allergy/AdvReac Type Severity Reaction Status Date / Time No Known Allergies Allergy Verified 01/03/22 10:14 Physical Exam Osteopathic Statement: *. No significant issues noted on an osteopathic structural exam other than those noted in the History and Physical/Consult. Vitals: Vital Signs Temp Pulse Resp BP Pulse Ox 01/03/22 11:39 88 16 124/77 97 01/03/22 10:10 83 18 134/91 98 01/03/22 09:11 88 20 141/102 99 01/03/22 07:28 98.5 F 104 H 18 123/79 98 Intake and Output 01/02/22 01/03/22 01/03/22 22:59 06:59 14:59 Other: Weight 79.379 kg Results CBC & Chem 7: 01/03/22 07:50 01/03/22 07:50 Labs: Abnormal Lab Results - Last 24 Hours (Table) 01/03/22 01/03/22 01/03/22 Range/Units 07:50 07:50 07:50 RBC 3.99 L (4.30-5.90) m/uL MCV 105.4 H (80.0-100.0) fL MCH 35.5 H (25.0-35.0) pg Plt Count 97 L (150-450) k/uL Lymphocytes # 0.9 L (1.0-4.8) k/uL PT 12.8 H (9.0-12.0) sec INR 1.2 H (<1.2) Potassium (3.5-5.1) mmol/L Glucose (74-99) mg/dL Magnesium (1.6-2.3) mg/dL Total Bilirubin (0.2-1.3) mg/dL AST (17-59) U/L ALT (4-49) U/L Alkaline Phosphatase (38-126) U/L Total Protein (6.3-8.2) g/dL Urine Protein (Negative) Urine Ketones (Negative) Urine Blood (Negative) Urine Bilirubin (Negative) Urine RBC (0-5) /hpf Urine Mucus (None) /hpf U Benzodiazepines Scrn Detected H (NotDetected) 01/03/22 01/03/22 Range/Units 07:50 07:50 RBC (4.30-5.90) m/uL MCV (80.0-100.0) fL MCH (25.0-35.0) pg Plt Count (150-450) k/uL Lymphocytes # (1.0-4.8) k/uL PT (9.0-12.0) sec INR (<1.2) Potassium 3.0 L (3.5-5.1) mmol/L Glucose 192 H (74-99) mg/dL Magnesium 0.9 L* (1.6-2.3) mg/dL Total Bilirubin 3.4 H (0.2-1.3) mg/dL AST 272 H (17-59) U/L ALT 76 H (4-49) U/L Alkaline Phosphatase 130 H (38-126) U/L Total Protein 8.4 H (6.3-8.2) g/dL Urine Protein 1+ H (Negative) Urine Ketones 2+ H (Negative) Urine Blood Small H (Negative) Urine Bilirubin 1+ H (Negative) Urine RBC 31 H (0-5) /hpf Urine Mucus Moderate H (None) /hpf U Benzodiazepines Scrn (NotDetected)
[2022-01-03 19:31] LABS: Hepatitis A Antibody IgM Nonreactive (Nonreactive); Hepatitis B Core IgM Nonreactive (Nonreactive); Hepatitis B Surface Antigen Nonreactive (Nonreactive); Hepatitis C IgG Antibody Nonreactive (Nonreactive)
[2022-01-03] MEDS ORDERED: LORazepam 1 MG/0.5 ML VIAL IV PRN ×3 (21:06)
[2022-01-03] MEDS: KETOROLAC 15 MG/ML 1 ML VIAL IVP PRN (21:07)
[2022-01-03] MEDS ORDERED: chlordiazePOXIDE 25 MG CAP PO STA (21:08)
[2022-01-04] MEDS: THIAMINE 100 MG/ML 2 ML VIAL IVP SCH ×3 (00:28→20:05)
[2022-01-04] MEDS: HYDROcodone/APAP 5-325MG 1 EACH TAB PO PRN ×3 (04:21→20:02)
[2022-01-04] MEDS: SODIUM CHLORIDE 0.9% 1,000 ML IV SCH ×2 (07:38→10:14)
[2022-01-04 07:53] LABS: HCT 36.8 % (39.0-53.0); HGB 12.2 gm/dL (13.0-17.5); MCH 34.4 pg (25.0-35.0); MCHC 33.1 g/dL (31.0-37.0); MCV 103.9 fL (80.0-100.0); Macrocytosis Slight; Platelet Count 97 k/uL (150-450); RBC 3.54 m/uL (4.30-5.90); RDW 12.7 % (11.5-15.5); WBC 5.8 k/uL (3.8-10.6)
[2022-01-04 08:02] LABS: ALT 78 U/L (4-49); AST 247 U/L (17-59); African American GFR (CKD) >90 (>60 ml/min/1.73 sqM); Albumin 3.9 g/dL (3.5-5.0); Albumin/Globulin Ratio 1.1; Alkaline Phosphatase 110 U/L (38-126); Anion Gap 11 mmol/L; Blood Urea Nitrogen 11 mg/dL (9-20); Carbon Dioxide 28 mmol/L (22-30); Chloride 98 mmol/L (98-107); Globulin 3.5 g/dL; Glucose 118 mg/dL (74-99); Magnesium 1.4 mg/dL (1.6-2.3); Non-African American GFR(CKD) >90 (>60 ml/min/1.73 sqM); Potassium 2.8 mmol/L (3.5-5.1); Sodium 137 mmol/L (137-145); Total Bilirubin 2.4 mg/dL (0.2-1.3); Total Protein 7.4 g/dL (6.3-8.2)
[2022-01-04] MEDS ORDERED: POTASSIUM CHLORIDE ER 20 MEQ TAB.ER PO STA (08:08)
[2022-01-04] MEDS: MULTIVITAMINS, THERA 1 EACH TAB PO SCH (10:12)
[2022-01-04] MEDS: NICOTINE 21MG/24HR PATCH TRANSDERM SCH (10:13)
[2022-01-04] MEDS: FOLIC ACID 1 MG TAB PO SCH (10:13)
[2022-01-04] MEDS: MAGNESIUM SULFATE-D5W PMX 1 GM in DEXTROSE/WATER 1 100ML.BAG IVPB SCH ×4 (10:13→17:09)
[2022-01-04] MEDS: PANTOPRAZOLE 40 MG/10 ML VIAL IV SCH (10:13)
[2022-01-04] MEDS: POTASSIUM CHLORIDE 10 MEQ in WATER FOR INJECTION 1 100ML.BAG IVPB SCH ×2 (10:34→14:05)
[2022-01-04] MEDS ORDERED: NICOTINE GUM (POLACRILEX) 2 MG GUM BUCCAL PRN (13:32)
--- NOTE | 2022-01-04 13:36 | P.PN ---
Subjective Progress Note Date: 01/04/22 (delayed charting seen at 0825) Patient is a 51 yo male with DM, HTN, and alcoholism who presented to the ED via EMS for falls and weakness. Patient was found outside on ground and was confused and unable to stand. In the Emergency department he underwent an extensive evaluation. On arrival he was slightly tachycardiac with a HR of 104. Initial labs were remarkable for plt 97, INR 1.2, K+ 3, Magnesium 0.9, T. bili 3.4, ast 272, alt 76, and alk phos 130. UDS was positive for benzodiazepines. Alcohol level was undetectable. CT head and cervical spine showed no acute fracture or dislocation of the cervical spine and no acute intrancranial hemorrhage. CXR shows no acute process. Elbow x-ray shows no acute fracture.Knee x-ray mild to moderate tricompartment joint space loss. CT abd and pelvis no acute finding hepatomegally with infiltrative hepatocellular disease.EKG show sinus arrhythmia. In the ED he was given magnesium and potassium replacements. Arrangements were made for observation. He continued to struggle with low potassium and magnesium and they were again replaced. Patient seen and examined at bedside. He reports that all of yesterday feels like a big blur. He remembered going to [facility] from [place], but does not recall how he ended up at [facility]. Today he denies any joint or back pain. He is unsure what he will do once he is released from the hospital. He states he from time to think about it. He does request something to help with tobacco cravings. He reports some nausea, diaphoresis, and shaking but overall does not feel as though he is having significant alcohol withdrawal. He does think he will need some type of therapy when he leaves the hospital. General: non toxic, no distress, appears at stated age Derm: warm, dry Head: atraumatic, normocephalic, symmetric Eyes: EOMI, no lid lag, anicteric sclera Mouth: no lip lesion, mucus membranes moist Cardiovascular: S1S2 reg, no murmur, positive posterior tibial pulse bilateral, Lungs: CTA bilateral, no rhonchi, no rales , no accessory muscle use Abdominal: soft, nontender to palpation, no guarding, no appreciable organomegaly Ext: no gross muscle atrophy, no edema, no contractures Neuro: CN II-XI grossly intact, no focal neuro deficits Psych: Alert, oriented, appropriate affect Assessment/plan: Weakness Multiple falls Hypomagnesemia, Hypokalemia - replace Mg and potassium, rehcek this afternoon and in AM - awiat PT/OT - Thiamine supplementation - B 1 level pending Possible foot drop on left - appears chronic per patient - outpatient work-up Tobacco - replacement - cessation Thrombocytopenia - likely due to ETOH intoxication Transaminitis - suspect due to ETOH use, improving - Liver US without fatty infiltration - Hepatitis profile negative Recent ETOH abuse - thiamine, folic acid DVT prophylaxis: SCDs Discussed with: patient Anticipated discharge: in AM Anticipated discharge place: home A total of 35 minutes was spent on the care of this complex patient more than 50% of the time was spent in counseling and care coordination. Objective - Vital Signs Vital signs: Vital Signs Temp 98.7 F 01/04/22 11:52 Pulse 71 01/04/22 11:52 Resp 20 01/04/22 11:52 BP 128/81 01/04/22 11:52 Pulse Ox 98 01/04/22 11:52 FiO2 Intake & Output 01/03/22 01/04/22 01/04/22 18:59 06:59 18:59 Intake Total 350 Balance 350 Weight 79.379 kg Intake: Oral 350 Other: Voiding Method Toilet # Voids 2 - Labs CBC & Chem 7: 01/04/22 07:07 01/04/22 07:07 Labs: Abnormal Lab Results - Last 24 Hours (Table) 01/04/22 01/04/22 Range/Units 07:07 07:07 RBC 3.54 L (4.30-5.90) m/uL Hgb 12.2 L (13.0-17.5) gm/dL Hct 36.8 L (39.0-53.0) % MCV 103.9 H (80.0-100.0) fL Plt Count 97 L (150-450) k/uL Potassium 2.8 L (3.5-5.1) mmol/L Creatinine 0.50 L (0.66-1.25) mg/dL Glucose 118 H (74-99) mg/dL Magnesium 1.4 L (1.6-2.3) mg/dL Total Bilirubin 2.4 H (0.2-1.3) mg/dL AST 247 H (17-59) U/L ALT 78 H (4-49) U/L
[2022-01-04 15:21] LABS: Magnesium 1.9 mg/dL (1.6-2.3); Potassium 3.6 mmol/L (3.5-5.1)
[2022-01-04] MEDS: KETOROLAC 15 MG/ML 1 ML VIAL IVP PRN (23:11)
[2022-01-05] MEDS: SODIUM CHLORIDE 0.9% 1,000 ML IV SCH ×2 (03:35→17:06)
[2022-01-05 06:00] LABS: HCT 35.1 % (39.0-53.0); HGB 11.6 gm/dL (13.0-17.5); MCH 34.6 pg (25.0-35.0); MCHC 33.2 g/dL (31.0-37.0); MCV 104.2 fL (80.0-100.0); Macrocytosis Slight; Mean Platelet Volume 8.9; RBC 3.36 m/uL (4.30-5.90); RDW 12.7 % (11.5-15.5); WBC 5.7 k/uL (3.8-10.6)
[2022-01-05 06:05] LABS: Platelet Count 98 k/uL (150-450)
[2022-01-05 06:11] LABS: African American GFR (CKD) >90 (>60 ml/min/1.73 sqM); Anion Gap 8 mmol/L; Blood Urea Nitrogen 11 mg/dL (9-20); Calcium 8.3 mg/dL (8.4-10.2); Carbon Dioxide 27 mmol/L (22-30); Chloride 100 mmol/L (98-107); Glucose 164 mg/dL (74-99); Magnesium 1.6 mg/dL (1.6-2.3); Non-African American GFR(CKD) >90 (>60 ml/min/1.73 sqM); Potassium 2.9 mmol/L (3.5-5.1); Sodium 135 mmol/L (137-145)
[2022-01-05] MEDS: NICOTINE 21MG/24HR PATCH TRANSDERM SCH (08:41)
[2022-01-05] MEDS: THIAMINE 100 MG/ML 2 ML VIAL IVP SCH (08:41)
[2022-01-05] MEDS: PANTOPRAZOLE 40 MG/10 ML VIAL IV SCH (08:42)
[2022-01-05] MEDS: MULTIVITAMINS, THERA 1 EACH TAB PO SCH (08:43)
[2022-01-05] MEDS: HYDROcodone/APAP 5-325MG 1 EACH TAB PO PRN (08:43)
[2022-01-05] MEDS: FOLIC ACID 1 MG TAB PO SCH (08:43)
[2022-01-05] MEDS ORDERED: POTASSIUM BICARBONATE/CIT AC 20 MEQ TABLET.EFF PO ONE (08:49)
[2022-01-05] MEDS ORDERED: POTASSIUM CHLORIDE 20 MEQ in WATER FOR INJECTION 1 100ML.BAG IVPB STA (08:49)
[2022-01-05] MEDS: MAGNESIUM SULFATE-D5W PMX 1 GM in DEXTROSE/WATER 1 100ML.BAG IVPB SCH ×4 (09:21→13:30)
[2022-01-05 11:22] VITALS: BP 108/72; PULSE 83; RESP 20; TEMP 97.5
[2022-01-05] MEDS ORDERED: POTASSIUM CHLORIDE ER 20 MEQ TAB.ER PO ONE (11:30)
[2022-01-05 15:42] LABS: Magnesium 2.5 mg/dL (1.6-2.3); Potassium 3.7 mmol/L (3.5-5.1)
--- NOTE | 2022-01-05 17:07 | P.DS ---
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 Patient was found outside on ground and was confused and unable to stand. In the Emergency department he underwent an extensive evaluation. On arrival he was slightly tachycardiac with a HR of 104. Initial labs were remarkable for plt 97, INR 1.2, K+ 3, Magnesium 0.9, T. bili 3.4, ast 272, alt 76, and alk phos 130. UDS was positive for benzodiazepines. Alcohol level was undetectable. CT head and cervical spine showed no acute fracture or dislocation of the cervical spine and no acute intrancranial hemorrhage. CXR shows no acute process. Elbow x-ray shows no acute fracture.Knee x-ray mild to moderate tricompartment joint space loss. CT abd and pelvis no acute finding hepatomegally with infiltrative hepatocellular disease.EKG show sinus arrhythmia. In the ED he was given magnesium and potassium replacements. Arrangements were made for observation. He continued to struggle with low potassium and magnesium and they were again replaced. His weakness resolved. Electrolytes normalized. He was determined stable for discharge home. Follow-up: Patient will need to continue on thiamine and folic acid for the next 30 days. He can use Motrin as needed for pain. Patient follow-up with Dr. Parra next week to discuss options for maintaining sobriety as well as possible need for further evaluation of hypokalemia and hypomagnesemia should this continue. Patient is aware of these recommendations and will call Dr. Parra's office on Sunday 01/07. Initially he had told me that he was not taking lantus or metformin at home and just monitoring his diabetes, on discharge he then states that he was taking this medications and I instructed him to continue these medications. Patient seen and examined at bedside. He is still having some left-sided chest discomfort where he fell. He denies any nausea, vomiting, diarrhea. Does not like the food here and has had a low appetite. Vital signs reviewed and stable. General: nontoxic, no distress, appears at stated age Derm: warm, dry Head: atraumatic, normocephalic, symmetric Eyes: EOMI, no lid lag, anicteric sclera Mouth: no lip lesion, mucus membranes moist Cardiovascular: S1S2 reg, no murmur, positive posterior tibial pulse bilateral, Lungs: CTA bilateral, no rhonchi, no rales , no accessory muscle use Abdominal: soft, nontender to palpation, no guarding, no appreciable organomegaly Ext: no gross muscle atrophy, no edema, no contractures Neuro: CN II-XI grossly intact, no focal neuro deficits Psych: Alert, oriented, appropriate affect A total of 35 minutes of time were spent preparing this complex discharge summary. Patient was discharged on 01/05/22. Plan - Discharge Summary New Discharge Prescriptions: New Folic Acid 1 mg PO DAILY #30 tab Potassium Chloride ER [K-Dur 20] 20 meq PO DAILY #30 tab Magnesium Oxide 400 mg PO DAILY #30 tablet Thiamine [Vitamin B-1] 100 mg PO BID #60 tablet Insulin Glargine,Hum.rec.anlog [Lantus Solostar Pen] 10 units SQ DAILY #5 each metFORMIN HCL 1,000 mg PO BID #60 tablet Ibuprofen [Motrin] 600 mg PO Q8HR PRN #30 tab PRN Reason: Pain Continue Atorvastatin [Lipitor] 10 mg PO DAILY Famotidine 20 mg PO DAILY Discontinued Aspirin 325 mg PO DAILY #30 tab metFORMIN HCL [Glucophage] 1,000 mg PO BID Potassium Chloride ER [K-Dur 20] 20 meq PO DAILY #10 tab Insulin Glargine,Hum.rec.anlog [Lantus Solostar Pen] 10 units SQ DAILY Discharge Medication List Atorvastatin [Lipitor] 10 mg PO DAILY 04/08/21 [History] Famotidine 20 mg PO DAILY 01/03/22 [History] Folic Acid 1 mg PO DAILY #30 tab 01/05/22 [Rx] Ibuprofen [Motrin] 600 mg PO Q8HR PRN #30 tab 01/05/22 [Rx] Insulin Glargine,Hum.rec.anlog [Lantus Solostar Pen] 10 units SQ DAILY #5 each 01/05/22 [Rx] Magnesium Oxide 400 mg PO DAILY #30 tablet 01/05/22 [Rx] Potassium Chloride ER [K-Dur 20] 20 meq PO DAILY #30 tab 01/05/22 [Rx] Thiamine [Vitamin B-1] 100 mg PO BID #60 tablet 01/05/22 [Rx] metFORMIN HCL 1,000 mg PO BID #60 tablet 01/05/22 [Rx] Follow up Appointment(s)/Referral(s): Courtney Parra MD [Primary Care Provider] - 1-2 days Patient Instructions/Handouts: Abuse of Alcohol (DC), Hypomagnesemia (DC) Activity/Diet/Wound Care/Special Instructions: Activity: as tolerated Diet: regular Special Instructions: Please talk with Dr. Parra about Naltrexone 50 mg daily to help maintain sobriety Your weakness is likely a combination of low potassium, magnesium, and thiamine which can become depleted with alcohol use. Discharge/Stand Alone Forms: AA Meetings [facility] Discharge Disposition: HOME SELF-CARE
== END 2022-01-05 17:55 | disposition home or self-care (01) ==
LOC: EC 07:22 → INTOOBSV 09:36 → 4SSUR 09:36 → 5NMEDONC 17:10 → UNDODISIN 01-05 17:55
PROVIDERS: ADMIT Internal Medicine; ATTEND Internal Medicine
DX: E83.42 Hypomagnesemia (principal); I69.954 Hemiplegia and hemiparesis following unspecified cerebrovascular disease affecting left non-dominant side; E87.6 Hypokalemia; F10.20 Alcohol dependence, uncomplicated; I11.9 Hypertensive heart disease without heart failure; E11.9 Type 2 diabetes mellitus without complications; S50.312A Abrasion of left elbow, initial encounter; S80.212A Abrasion, left knee, initial encounter; S90.412A Abrasion, left great toe, initial encounter; R29.6 Repeated falls; W01.0XXA Fall on same level from slipping, tripping and stumbling without subsequent striking against object, initial encounter; R07.89 Other chest pain; E78.5 Hyperlipidemia, unspecified; K76.9 Liver disease, unspecified; D69.6 Thrombocytopenia, unspecified; R74.01 Elevation of levels of liver transaminase levels; K59.00 Constipation, unspecified; R53.1 Weakness; M54.2 Cervicalgia; R51.9 Headache, unspecified; G89.29 Other chronic pain; M54.9 Dorsalgia, unspecified; F17.200 Nicotine dependence, unspecified, uncomplicated; R41.0 Disorientation, unspecified; I49.8 Other specified cardiac arrhythmias; Z79.82 Long term (current) use of aspirin; Z79.4 Long term (current) use of insulin; Z79.84 Long term (current) use of oral hypoglycemic drugs; Z79.899 Other long term (current) drug therapy; Z90.49 Acquired absence of other specified parts of digestive tract; Z80.42 Family history of malignant neoplasm of prostate; Z71.6 Tobacco abuse counseling
CPT/HCPCS: 96376 ×3; 96361 ×3; 96366 ×3; 96367; 96375 ×2; 96365; 99285; 36415; 93005; 84425; 80053 ×2; 80048; 80074; 83735 ×3; 84132 ×2; 84484; 85025; 85027 ×2; 85610; 85730; 81001; 80306; 73080; 73562; 71046; 72125; 70450; 74177; G0378 ×4; G0480; S4990 ×2; J2060; J3411 ×2; J3480 ×2; J3475 ×3; J1885 ×2; C9113 ×3; Q9967; 80320

== ENCOUNTER → 2022-11-18 | Outpatient (CLI) | payer OTHER ==
--- NOTE | 2022-11-18 23:27 | XR ---
EXAMINATION TYPE: XR spine complete AP and Lat DATE OF EXAM: 11/18/2022 COMPARISON: None HISTORY: Arthritis, no injury TECHNIQUE: Multiple views of the cervical spine were obtained FINDINGS: C-spine: Prevertebral space normal. Posterior spinal lamellar line is intact. Some posterior disc spa ce narrowing is present C4-5 C5-6. Mild diffuse disc space narrowing is present C6-7. Odontoid tip is limited due to overlying occiput. Mild vascular calcification within the carotid vessels may be present. Thoracic spine: There are 12 thoracic type vertebral bodies. T12 ribs appear rudimentary. Some mild s pondylosis within the lower thoracic spine. Vertebral body alignment is preserved. Lumbar spine: There are 5 lumbar-type vertebral bodies. Pedicles are intact. Some mild disc space na rrowing of posterior L5-S1 may be present. Disc heights are otherwise preserved. Vertebral body heigh ts are preserved. IMPRESSION: 1. Mild degenerative disc changes within the cervical and lumbar spine. 2. Mild spondylosis more notable within the lower thoracic spine
== END | disposition home or self-care (01) ==
LOC: RADXRMAIN 13:14
PROVIDERS: ATTEND Family Medicine
DX: M50.321 Other cervical disc degeneration at C4-C5 level (principal); M51.36 Other intervertebral disc degeneration, lumbar region; M47.814 Spondylosis without myelopathy or radiculopathy, thoracic region
CPT/HCPCS: 72082

== ENCOUNTER 2022-12-21 09:04 | Emergency (ER) | payer OTHER ==
[2022-12-21 09:11] VITALS: RESP 18; TEMP 98
[2022-12-21] MEDS ORDERED: SODIUM CHLORIDE 0.9% 1,000 ML IV STA (09:42)
--- NOTE | 2022-12-21 09:48 | ED ---
General Adult HPI - General Chief complaint: Weakness Stated complaint: Fall Time Seen by Provider: 12/21/22 09:10 Source: patient, RN notes reviewed, old records reviewed Mode of arrival: ambulatory Limitations: no limitations - History of Present Illness Initial comments: This is a 52-year-old male who presents emergency Department with a past medical history significant for alcoholism. Patient states she's been in [facility] since Thursday and he has been having issues with walking and feeling dizzy for the last 2 weeks. Patient states he also has generalized muscle soreness. Patient states he fell times last night did not injure himself. Patient states she also fell one time on the way to the hospital today he stopped at home and fell there. Patient did not get injured there. Patient states he's had no fever or chills patient or shortness of breath or chest pain. Patient denies palpitations. Patient denies headache patient denies numbness weakness. Patient states he starts to walk and he feels very off balance. - Related Data Home Medications Medication Instructions Recorded Confirmed Atorvastatin [Lipitor] 10 mg PO DAILY 04/08/21 01/03/22 Famotidine 20 mg PO DAILY 01/03/22 01/03/22 Previous Rx's Medication Instructions Recorded Folic Acid 1 mg PO DAILY #30 tab 01/05/22 Ibuprofen [Motrin] 600 mg PO Q8HR PRN #30 tab 01/05/22 Insulin Glargine,Hum.rec.anlog 10 units SQ DAILY #5 each 01/05/22 [Lantus Solostar Pen] Magnesium Oxide 400 mg PO DAILY #30 tablet 01/05/22 Potassium Chloride ER [K-Dur 20] 20 meq PO DAILY #30 tab 01/05/22 Thiamine [Vitamin B-1] 100 mg PO BID #60 tablet 01/05/22 metFORMIN HCL 1,000 mg PO BID #60 tablet 01/05/22 Allergies Allergy/AdvReac Type Severity Reaction Status Date / Time No Known Allergies Allergy Verified 12/21/22 09:10 Review of Systems ROS Statement: Those systems with pertinent positive or pertinent negative responses have been documented in the HPI. ROS Other: All systems not noted in ROS Statement are negative. Past Medical History Past Medical History: CVA/TIA, Diabetes Mellitus, Hyperlipidemia, Hypertension Additional Past Medical History / Comment(s): Two strokes within the past year; testing for cancer History of Any Multi-Drug Resistant Organisms: None Reported Past Surgical History: Appendectomy Past Anesthesia/Blood Transfusion Reactions: No Reported Reaction Past Psychological History: Depression Smoking Status: Current every day smoker Past Alcohol Use History: Abuse, Daily, Heavy Past Drug Use History: None Reported - Past Family History Father Additional Family Medical History / Comment(s): prostate cancer General Exam - General Exam Comments Initial Comments: GENERAL: Patient is well-developed and well-nourished. Patient is nontoxic and well- hydrated and is in mild distress. ENT: Neck is soft and supple. No significant lymphadenopathy is noted. Oropharynx is clear. Moist mucous membranes. Neck has full range of motion without eliciting any pain. EYES: The sclera were anicteric and conjunctiva were pink and moist. Extraocular movements were intact and pupils were equal round and reactive to light. Eyelids were unremarkable. PULMONARY: Unlabored respirations. Good breath sounds bilaterally. No audible rales rhonchi or wheezing was noted. CARDIOVASCULAR: Patient is mildly tachycardic at 105 beats a minute ABDOMEN: Soft and nontender with normal bowel sounds. No palpable organomegaly was noted. There is no palpable pulsatile mass. SKIN: Skin is clear with no lesions or rashes and otherwise unremarkable. NEUROLOGIC: Patient is alert and oriented x3. Cranial nerves II through XII are grossly intact. Motor and sensory are also intact. Normal speech, volume and content. Symmetrical smile. MUSCULOSKELETAL: Normal extremities with adequate strength and full range of motion. No lower extremity swelling or edema. No calf tenderness. LYMPHATICS: No significant lymphadenopathy is noted PSYCHIATRIC: Normal psychiatric evaluation. Limitations: no limitations Course Vital Signs 12/21/22 12/21/22 12/21/22 09:05 10:43 10:45 Temperature 98 F Pulse Rate 116 H Pulse Rate [ 96 Right Sitting Pulse Oximetery ] Pulse Rate [ Right Standing Pulse Oximetery ] Pulse Rate [ 85 Right Supine] Respiratory 18 18 18 Rate Blood Pressure 113/77 Blood Pressure 151/92 [Right Arm Sitting] Blood Pressure [Right Arm Standing] Blood Pressure 146/86 [Right Arm Supine] O2 Sat by Pulse 99 98 98 Oximetry 12/21/22 10:47 Temperature Pulse Rate Pulse Rate [ Right Sitting Pulse Oximetery ] Pulse Rate [ 100 Right Standing Pulse Oximetery ] Pulse Rate [ Right Supine] Respiratory 18 Rate Blood Pressure Blood Pressure [Right Arm Sitting] Blood Pressure 125/92 [Right Arm Standing] Blood Pressure [Right Arm Supine] O2 Sat by Pulse 98 Oximetry Medical Decision Making - Medical Decision Making EKG as interpreted by myself shows a sinus tachycardia at 107 bpm UT interval 275 QRS is 97 QT interval 355 QTC is 418. Patient's EKG is of depression. Was pt. sent in by a medical professional or institution (, PA, OUTBOARD MOTORBOAT RIGGER, urgent care, hospital, or [facility]...) When possible be specific @ -Dehydration was sent in by [facility] Did you speak to anyone other than the patient for history (EMS, parent, family, police, friend...)? What history was obtained from this source @ -No Did you review nursing and triage notes (agree or disagree)? Why? @ -I reviewed and agree with nursing and triage notes Were old charts reviewed (outside hosp., previous admission, EMS record, old EKG, old radiological studies, urgent care reports/EKG's, [facility] records)? Report findings @ -No old charts were reviewed Differential Diagnosis (chest pain, altered mental status, abdominal pain women, abdominal pain men, vaginal bleeding, weakness, fever, dyspnea, syncope, headache, dizziness, GI bleed, back pain, seizure, CVA, palpatations, mental health, musculoskeletal)? @ -Differential Weakness: Hypoglycemia, shock, sepsis, hyponatremia, anemia, infection, OK, ETOH, adverse medicine reaction, overdose, stroke, this is not meant to be an all-inclusive list. EKG interpreted by me (3pts min.). @ -As above X-rays interpreted by me (1pt min.). @ -Chest x-ray showed no acute abnormality CT interpreted by me (1pt min.). @ -CT of the brain showed no acute abnormality U/S interpreted by me (1pt. min.). @ -None done What testing was considered but not performed or refused? (CT, X-rays, U/S, labs)? Why? @ -None What meds were considered but not given or refused? Why? @ -None Did you discuss the management of the patient with other professionals (professionals i.e. , PA, OUTBOARD MOTORBOAT RIGGER, lab, RT, psych nurse, social work professor, guard immigration, teacher, sba business development officer, case picker)? Give summary @ -No Was smoking cessation discussed for >3mins.? @ -No Was critical care preformed (if so, how long)? @ -No Were there social determinants of health that impacted care today? How? (Homelessness, low income, unemployed, alcoholism, drug addiction, transportation, low edu. Level, literacy, decrease access to med. care, usp, rehab)? @ -No Was there de-escalation of care discussed even if they declined (Discuss DNR or withdrawal of care, Hospice)? DNR status @ -No What co-morbidities impacted this encounter? (DM, HTN, Smoking, COPD, CAD, Cancer, CVA, ARF, Chemo, Hep., AIDS, mental health diagnosis, sleep apnea, morbid obesity)? @ -None Was patient admitted / discharged? Hospital course, mention meds given and route, prescriptions, significant lab abnormalities, going to OR and other p ertinent info. @ -Is awaiting lab work and patient eloped had no time to discuss the detriment of leaving early. Undiagnosed new problem with uncertain prognosis? @ -No Drug Therapy requiring intensive monitoring for toxicity (Heparin, Nitro, Insulin, Cardizem)? @ -No Were any procedures done? @ -No Diagnosis/symptom? @ -Weakness Acute, or Chronic, or Acute on Chronic? @ -Acute Uncomplicated (without systemic symptoms) or Complicated (systemic symptoms)? @ -Complicated Side effects of treatment? @ -No Exacerbation, Progression, or Severe Exacerbation? @ -No Poses a threat to life or bodily function? How? (Chest pain, USA, OK, pneumonia, PE, COPD, DKA, ARF, appy, cholecystitis, CVA, Diverticulitis, Homicidal, Suicidal, threat to staff... and all critical care pts) @ -No Diagnosis/symptom? @ -Alcohol abuse Acute, or Chronic, or Acute on Chronic? @ -Chronic Uncomplicated (without systemic symptoms) or Complicated (systemic symptoms)? @ -Complicated Side effects of treatment? @ -none Exacerbation, Progression, or Severe Exacerbation] @ -no Poses a threat to life or bodily function? @ -no - Lab Data Result diagrams: 12/21/22 09:54 12/21/22 09:54 Lab Results 12/21/22 12/21/22 12/21/22 Range/Units 09:54 09:54 09:54 WBC 6.1 (3.8-10.6) k/uL RBC 3.83 L (4.30-5.90) m/uL Hgb 12.7 L (13.0-17.5) gm/dL Hct 37.5 L (39.0-53.0) % MCV 97.9 (80.0-100.0) fL MCH 33.0 (25.0-35.0) pg MCHC 33.7 (31.0-37.0) g/dL RDW 13.2 (11.5-15.5) % Plt Count 102 L (150-450) k/uL MPV 9.5 Neutrophils % 60 % Lymphocytes % 25 % Monocytes % 11 % Eosinophils % 2 % Basophils % 0 % Neutrophils # 3.6 (1.3-7.7) k/uL Lymphocytes # 1.5 (1.0-4.8) k/uL Monocytes # 0.7 (0-1.0) k/uL Eosinophils # 0.1 (0-0.7) k/uL Basophils # 0.0 (0-0.2) k/uL PT 12.9 H (9.0-12.0) sec INR 1.3 H (<1.2) APTT 26.2 (22.0-30.0) sec Sodium 136 L (137-145) mmol/L Potassium 3.9 (3.5-5.1) mmol/L Chloride 103 (98-107) mmol/L Carbon Dioxide 20 L (22-30) mmol/L Anion Gap 13 mmol/L BUN 17 (9-20) mg/dL Creatinine 0.82 (0.66-1.25) mg/dL Est GFR (CKD-EPI)AfAm >90 (>60 ml/min/1.73 sqM) Est GFR (CKD-EPI)NonAf >90 (>60 ml/min/1.73 sqM) Glucose 135 H (74-99) mg/dL Plasma Lactic Acid Salbador (0.7-2.0) mmol/L Calcium 9.3 (8.4-10.2) mg/dL Magnesium 1.7 (1.6-2.3) mg/dL Total Bilirubin 2.6 H (0.2-1.3) mg/dL AST 135 H (17-59) U/L ALT 45 (4-49) U/L Alkaline Phosphatase 134 H (38-126) U/L Creatine Kinase (55-170) U/L Troponin I (0.000-0.034) ng/mL Total Protein 8.5 H (6.3-8.2) g/dL Albumin 3.9 (3.5-5.0) g/dL TSH 3.560 (0.465-4.680) mIU/L Serum Alcohol <10 mg/dL 12/21/22 12/21/22 12/21/22 Range/Units 09:54 09:54 09:54 WBC (3.8-10.6) k/uL RBC (4.30-5.90) m/uL Hgb (13.0-17.5) gm/dL Hct (39.0-53.0) % MCV (80.0-100.0) fL MCH (25.0-35.0) pg MCHC (31.0-37.0) g/dL RDW (11.5-15.5) % Plt Count (150-450) k/uL MPV Neutrophils % % Lymphocytes % % Monocytes % % Eosinophils % % Basophils % % Neutrophils # (1.3-7.7) k/uL Lymphocytes # (1.0-4.8) k/uL Monocytes # (0-1.0) k/uL Eosinophils # (0-0.7) k/uL Basophils # (0-0.2) k/uL PT (9.0-12.0) sec INR (<1.2) APTT (22.0-30.0) sec Sodium (137-145) mmol/L Potassium (3.5-5.1) mmol/L Chloride (98-107) mmol/L Carbon Dioxide (22-30) mmol/L Anion Gap mmol/L BUN (9-20) mg/dL Creatinine (0.66-1.25) mg/dL Est GFR (CKD-EPI)AfAm (>60 ml/min/1.73 sqM) Est GFR (CKD-EPI)NonAf (>60 ml/min/1.73 sqM) Glucose (74-99) mg/dL Plasma Lactic Acid Salbador 1.4 (0.7-2.0) mmol/L Calcium (8.4-10.2) mg/dL Magnesium (1.6-2.3) mg/dL Total Bilirubin (0.2-1.3) mg/dL AST (17-59) U/L ALT (4-49) U/L Alkaline Phosphatase (38-126) U/L Creatine Kinase 47 L (55-170) U/L Troponin I <0.012 (0.000-0.034) ng/mL Total Protein (6.3-8.2) g/dL Albumin (3.5-5.0) g/dL TSH (0.465-4.680) mIU/L Serum Alcohol mg/dL Disposition Clinical Impression: Weakness, Alcohol abuse Disposition: LEFT AGAINST MEDICAL ADVICE Referrals: Lars Santiago MD [Primary Care Provider] - 1-2 days Time of Disposition: 12:30
[2022-12-21 10:17] LABS: INR 1.3 (<1.2); Partial Thromboplastin Time 26.2 sec (22.0-30.0); Prothrombin Time 12.9 sec (9.0-12.0)
--- NOTE | 2022-12-21 10:20 | XR ---
EXAMINATION TYPE: XR chest 2V DATE OF EXAM: 12/21/2022 10:15 AM COMPARISON: Chest radiographs from 01/03/2022 TECHNIQUE: XR chest 2V Frontal and lateral views of the chest. CLINICAL INDICATION:Male, 52 years old with history of Weakness; FINDINGS: Lungs/Pleura: There is no evidence of pleural effusion, focal consolidation, or pneumothorax. Pulmonary vascularity: Unremarkable. Heart/mediastinum: Cardiomediastinal silhouette is unremarkable. Musculoskeletal: No acute osseous pathology. Other: Overlying bilateral metallic nipple ornaments are redemonstrated. IMPRESSION: No acute cardiopulmonary disease/process.
[2022-12-21 10:38] LABS: African American GFR (CKD) >90 (>60 ml/min/1.73 sqM); Non-African American GFR(CKD) >90 (>60 ml/min/1.73 sqM)
--- NOTE | 2022-12-21 10:47 | CT ---
EXAMINATION TYPE: CT brain wo con CT DLP: 1203.4 mGycm, Automated exposure control for dose reduction was used. DATE OF EXAM: 12/21/2022 10:13 AM COMPARISON: 01/03/2022. CLINICAL INDICATION:Male, 52 years old with history of weakness, Fall TECHNIQUE: Brain: Axial CT images of the brain were obtained with coronal and sagittal reformats created and rev iewed. Contrast used: None. Oral contrast used: None. FINDINGS: Brain: Extra-axial spaces: No abnormal extra-axial fluid collections. Ventricular system: Within normal limits Cerebral parenchyma: No acute intraparenchymal hemorrhage or mass effect. The ahumada-white junction is well differentiated. Cerebellum: Unremarkable. Mass effect: No evidence of midline shift. Intracranial vasculature: Atherosclerotic calcifications of the intracranial vessels. Soft tissues: Normal. Calvarium/osseous structures: No depressed skull fracture. Paranasal sinuses and mastoid air cells: Mild scattered paranasal sinus disease. Findings worse in th e maxillary sinuses right greater than left. Visualized orbits: Orbital contents are intact. IMPRESSION: No acute intracranial process.
[2022-12-21 10:48] LABS: Basophils % (A) 0 %; Eosinophils # (A) 0.1 k/uL (0-0.7); Eosinophils % (A) 2 %; HCT 37.5 % (39.0-53.0); HGB 12.7 gm/dL (13.0-17.5); Lymphocytes # (A) 1.5 k/uL (1.0-4.8); Lymphocytes % (A) 25 %; MCHC 33.7 g/dL (31.0-37.0); MCV 97.9 fL (80.0-100.0); Mean Platelet Volume 9.5; Monocytes # (A) 0.7 k/uL (0-1.0); Monocytes % (A) 11 %; Neutrophils # (A) 3.6 k/uL (1.3-7.7); Neutrophils % (A) 60 %; RBC 3.83 m/uL (4.30-5.90); RDW 13.2 % (11.5-15.5); WBC 6.1 k/uL (3.8-10.6)
[2022-12-21 10:49] LABS: Platelet Count 102 k/uL (150-450)
[2022-12-21 10:56] LABS: ALT 45 U/L (4-49); AST 135 U/L (17-59); Albumin 3.9 g/dL (3.5-5.0); Alcohol <10 mg/dL; Alkaline Phosphatase 134 U/L (38-126); Anion Gap 13 mmol/L; Blood Urea Nitrogen 17 mg/dL (9-20); Calcium 9.3 mg/dL (8.4-10.2); Carbon Dioxide 20 mmol/L (22-30); Chloride 103 mmol/L (98-107); Glucose 135 mg/dL (74-99); Magnesium 1.7 mg/dL (1.6-2.3); Potassium 3.9 mmol/L (3.5-5.1); Sodium 136 mmol/L (137-145); Total Bilirubin 2.6 mg/dL (0.2-1.3); Total Protein 8.5 g/dL (6.3-8.2)
[2022-12-21 12:30] VITALS: BP 126/87; PULSE 86
== END 2022-12-21 12:25 | disposition left against medical advice (07) ==
LOC: EC 09:04
DX: R53.1 Weakness (principal); F10.10 Alcohol abuse, uncomplicated; E11.9 Type 2 diabetes mellitus without complications; E78.5 Hyperlipidemia, unspecified; F17.200 Nicotine dependence, unspecified, uncomplicated; I10 Essential (primary) hypertension; Z86.59 Personal history of other mental and behavioral disorders; Z79.899 Other long term (current) drug therapy; Z90.49 Acquired absence of other specified parts of digestive tract
CPT/HCPCS: 36415; 93005; 80053; 82550; 83605; 83735; 84443; 84484; 85025; 85610; 85730; 71046; 70450; 99285; 96360; G0480; 80320

== ENCOUNTER → 2023-03-20 | Outpatient (CLI) | payer OTHER ==
[2023-03-20 15:42] LABS: Basophils # (A) 0.04 X 10*3/uL (0.00-0.10); Basophils % (A) 0.8 %; Eosinophils # (A) 0.28 X 10*3/uL (0.04-0.35); Eosinophils % (A) 5.8 %; HGB 13.3 g/dL (13.0-17.0); Lymphocytes # (A) 2.07 X 10*3/uL (0.90-5.00); MCH 30.9 pg (27.0-32.0); MCHC 34.1 g/dL (32.0-37.0); MCV 90.7 FL (80.0-97.0); Mean Platelet Volume 10.3 FL (9.5-12.2); Monocytes # (A) 0.67 X 10*3/uL (0.20-1.00); Monocytes % (A) 13.9 %; NRBC Per 100 WBC 0 X 10*3/uL (0.00-0.01); Neutrophils # (A) 1.74 X 10*3/uL (1.80-7.70); Neutrophils % (A) 36.3 %; Platelet Count 119 X 10*3/uL (140-440); RDW 14.8 % (11.5-14.5); WBC 4.81 X 10*3/uL (4.50-10.00)
[2023-03-20 16:15] LABS: Chol/HDL Ratio 2.24 Ratio; VLDL Calculation 16.32 mg/dL (5.00-40.00)
[2023-03-20 16:16] LABS: ALT 25 U/L (10-49); AST 62 U/L (14-35); Albumin/Globulin Ratio 1.11 Ratio (1.60-3.17); Alkaline Phosphatase 90 U/L (41-126); BUN/Creat Ratio 9.71 Ratio (12.00-20.00); Blood Urea Nitrogen 6.8 mg/dL (9.0-27.0); Calcium 9.5 mg/dL (8.7-10.3); Carbon Dioxide 20.7 mmol/L (21.6-31.8); Chloride 103 mmol/L (96-109); Globulin 3.6 g/dL (1.6-3.3); Glucose 159 mg/dL (70-110); LDL Cholesterol,Calculated 90.6 mg/dL (0.0-131.0); Potassium 3.3 mmol/L (3.5-5.5); Sodium 140 mmol/L (135-145); T4, Free (Free Thyroxine) 1.02 ng/dL (0.80-1.80); Total Bilirubin 0.9 mg/dL (0.3-1.2); Total Protein 7.6 g/dL (6.2-8.2)
== END | disposition home or self-care (01) ==
LOC: LABWHC1 11:06
PROVIDERS: ATTEND Family Medicine
DX: E11.9 Type 2 diabetes mellitus without complications (principal)
CPT/HCPCS: 36415; 80053; 80061; 82043; 82570; 83036; 84439; 85025

== ENCOUNTER 2023-05-27 19:34 | Emergency (ER) | payer OTHER ==
--- NOTE | 2023-05-27 19:50 | ED ---
General Adult HPI - General Source: patient, RN notes reviewed Mode of arrival: ambulatory Limitations: no limitations <Brenda Guzman - Last Filed: 05/27/23 19:54> <Georges Elias - Last Filed: 05/28/23 05:02> - General Chief complaint: Extremity Problem,Nontraumatic Stated complaint: leg pain Time Seen by Provider: 05/27/23 19:50 - History of Present Illness Initial comments: This is a 52 year old male who presents to the emergency department for pain in his extremities. Reports pain in his bilateral legs, feet, and hands for the last month. His skin is also occasionally painful to the touch. (Brenda Guzman) 52-year-old male presenting with chief complaint of pain to the legs. Patient has pain in the bilateral hips down the legs and feet. Symptoms have been ongoing for the last month, no change in symptoms. He states that at times his hands and his feet will feel numb, he does have history of diabetes. States that his skin is sometimes painful to the touch. He has no fevers, nausea, vomiting, chest pain, difficulty breathing, lower extremity swelling, discoloration, injury or trauma, weakness (Georges Elias) - Related Data Home Medications Medication Instructions Recorded Confirmed Atorvastatin [Lipitor] 10 mg PO DAILY 04/08/21 01/03/22 Famotidine 20 mg PO DAILY 01/03/22 01/03/22 Previous Rx's Medication Instructions Recorded Folic Acid 1 mg PO DAILY #30 tab 01/05/22 Ibuprofen [Motrin] 600 mg PO Q8HR PRN #30 tab 01/05/22 Insulin Glargine,Hum.rec.anlog 10 units SQ DAILY #5 each 01/05/22 [Lantus Solostar Pen] Magnesium Oxide 400 mg PO DAILY #30 tablet 01/05/22 Potassium Chloride ER [K-Dur 20] 20 meq PO DAILY #30 tab 01/05/22 Thiamine [Vitamin B-1] 100 mg PO BID #60 tablet 01/05/22 metFORMIN HCL 1,000 mg PO BID #60 tablet 01/05/22 Allergies Allergy/AdvReac Type Severity Reaction Status Date / Time No Known Allergies Allergy Verified 12/21/22 09:10 Review of Systems ROS Other: All systems not noted in ROS Statement are negative. <Brenda Guzman - Last Filed: 05/27/23 19:54> ROS Other: All systems not noted in ROS Statement are negative. <Georges Elias - Last Filed: 05/28/23 05:02> ROS Statement: Those systems with pertinent positive or pertinent negative responses have been documented in the HPI. Past Medical History Past Medical History: CVA/TIA, Diabetes Mellitus, Hyperlipidemia, Hypertension Additional Past Medical History / Comment(s): Two strokes within the past year; testing for cancer History of Any Multi-Drug Resistant Organisms: None Reported Past Surgical History: Appendectomy Past Anesthesia/Blood Transfusion Reactions: No Reported Reaction Past Psychological History: Depression Smoking Status: Current every day smoker Past Alcohol Use History: Abuse, Daily, Heavy Past Drug Use History: None Reported - Past Family History Father Additional Family Medical History / Comment(s): prostate cancer <Brenda Guzman - Last Filed: 05/27/23 19:54> General Exam <Brenda Guzman - Last Filed: 05/27/23 19:54> Limitations: no limitations General appearance: alert, in no apparent distress Head exam: Present: atraumatic, normocephalic Eye exam: Present: normal appearance, EOMI Neck exam: Present: normal inspection Respiratory exam: Present: normal lung sounds bilaterally. Absent: respiratory distress, wheezes, rales, rhonchi, stridor Cardiovascular Exam: Present: regular rate, normal rhythm, normal heart sounds. Absent: systolic murmur, diastolic murmur, rubs, gallop, clicks Extremities exam: Present: normal inspection, full ROM, normal capillary refill. Absent: tenderness, pedal edema Neurological exam: Present: alert, oriented X3 Psychiatric exam: Present: normal affect, normal mood Skin exam: Present: warm, dry <Georges Elias - Last Filed: 05/28/23 05:02> - General Exam Comments Initial Comments: Visual Physical Exam Vital signs reviewed General: Well-appearing, nontoxic, no acute distress. Head: Normocephalic, atraumatic Eyes: PERRLA, EOMI ENT: Airway patent Chest: Nonlabored breathing Skin: No visual rash, normal skin tone Neuro: Alert and oriented 3 Musculoskeletal: No gross abnormalities (Brenda Guzman) Course Vital Signs 05/27/23 05/27/23 19:52 23:13 Temperature 97.9 F 98.4 F Pulse Rate 103 H 78 Respiratory 18 16 Rate Blood Pressure 132/61 146/78 O2 Sat by Pulse 97 99 Oximetry Medical Decision Making <Brenda Guzman - Last Filed: 05/27/23 19:54> - Lab Data Result diagrams: 05/27/23 20:02 05/27/23 20:02 <Georges Elias - Last Filed: 05/28/23 05:02> - Medical Decision Making I performed the QuickNote portion of this chart. Signed Brenda Guzman PA-C. (Brenda Guzman) Was pt. sent in by a medical professional or institution (RUDDY Sims, FRUIT HARVEST MACHINE OPERATOR, urgent care, hospital, or retirement...) When possible be specific @ -No Did you speak to anyone other than the patient for history (EMS, parent, family, police, friend...)? What history was obtained from this source @ -No Did you review nursing and triage notes (agree or disagree)? Why? @ -I reviewed and agree with nursing and triage notes Were old charts reviewed (outside hosp., previous admission, EMS record, old EKG, old radiological studies, urgent care reports/EKG's, retirement records)? Report findings @ -No old charts were reviewed Differential Diagnosis (chest pain, altered mental status, abdominal pain women, abdominal pain men, vaginal bleeding, weakness, fever, dyspnea, syncope, headache, dizziness, GI bleed, back pain, seizure, CVA, palpatations, mental health, musculoskeletal)? @ -Differential Musculoskeletal Muscular strain, contusion, ligament sprain, fracture, arthritis, septic arthritis, bursitis, cellulitis, muscle spasm, nerve compression, DVT, arterial occlusion, herpes zoster, electrolyte abnormality, tumor.... This is not meant to be in all inclusive list EKG interpreted by me (3pts min.). @ -As above X-rays interpreted by me (1pt min.). @ -None done CT interpreted by me (1pt min.). @ -None done U/S interpreted by me (1pt. min.). @ -None done What testing was considered but not performed or refused? (CT, X-rays, U/S, labs)? Why? @ -None What meds were considered but not given or refused? Why? @ -None Did you discuss the management of the patient with other professionals (professionals i.e. , PA, FRUIT HARVEST MACHINE OPERATOR, lab, RT, psych nurse, nephrology social worker, automatic transmission mechanic, teacher, loan officer assistant, leather case finisher)? Give summary @ -No Was smoking cessation discussed for >3mins.? @ -No Was critical care preformed (if so, how long)? @ -No Were there social determinants of health that impacted care today? How? (Homelessness, low income, unemployed, alcoholism, drug addiction, transportation, low edu. Level, literacy, decrease access to med. care, intermediate, rehab)? @ -No Was there de-escalation of care discussed even if they declined (Discuss DNR or withdrawal of care, Hospice)? DNR status @ -No What co-morbidities impacted this encounter? (DM, HTN, Smoking, COPD, CAD, Cancer, CVA, ARF, Chemo, Hep., AIDS, mental health diagnosis, sleep apnea, morbid obesity)? @ -None Was patient admitted / discharged? Hospital course, mention meds given and r oute, prescriptions, significant lab abnormalities, going to OR and other pertinent info. @ -52-year-old male presenting with chief complaint of bilateral leg pain. Symptoms ongoing for the past month. Patient has history of what seems to be diabetic neuropathy, he states that his hands and feet will go numb in a stocking pattern. On physical exam he is neurovascularly intact. No lower extremity edema. No leukocytosis or anemia. Findings reflective of alcoholic hepatitis with bilirubin 1.4 AST 208 ALT 84 alkaline phosphatase 133. Lactic acid 2.8, likely due to dehydration. Patient is negative for influenza, RSV, and Covid. He is treated with fluids and Toradol. Discharged home. Follow-up with PCP. Report back to ER with any new or worsening symptoms. Discussed return parameters and answered all questions. Patient conveyed verbal understa nding and agreed to the plan. I discussed this case in detail with my attending Dr. Odom Undiagnosed new problem with uncertain prognosis? @ -No Drug Therapy requiring intensive monitoring for toxicity (Heparin, Nitro, Insulin, Cardizem)? @ -No Were any procedures done? @ -No Diagnosis/symptom? @ -Leg pain Acute, or Chronic, or Acute on Chronic? @ -Acute Uncomplicated (without systemic symptoms) or Complicated (systemic symptoms)? @ -Uncomplicated Side effects of treatment? @ -No Exacerbation, Progression, or Severe Exacerbation? @ -No Poses a threat to life or bodily function? How? (Chest pain, USA, [place], pneumonia, PE, COPD, DKA, ARF, appy, cholecystitis, CVA, Diverticulitis, Homicidal, Suicidal, threat to staff... and all critical care pts) @ -No (Georges Elias) - Lab Data Lab Results 05/27/23 05/27/23 05/27/23 Range/Units 20:02 20:02 20:02 WBC 9.1 (3.8-10.6) k/uL RBC 4.47 (4.30-5.90) m/uL Hgb 14.5 (13.0-17.5) gm/dL Hct 43.2 (39.0-53.0) % MCV 96.6 (80.0-100.0) fL MCH 32.4 (25.0-35.0) pg MCHC 33.5 (31.0-37.0) g/dL RDW 14.0 (11.5-15.5) % Plt Count 127 L (150-450) k/uL MPV 7.9 Neutrophils % 48 % Lymphocytes % 37 % Monocytes % 7 % Eosinophils % 4 % Basophils % 1 % Neutrophils # 4.4 (1.3-7.7) k/uL Lymphocytes # 3.4 (1.0-4.8) k/uL Monocytes # 0.7 (0-1.0) k/uL Eosinophils # 0.3 (0-0.7) k/uL Basophils # 0.1 (0-0.2) k/uL Sodium 146 H (137-145) mmol/L Potassium 4.1 (3.5-5.1) mmol/L Chloride 107 (98-107) mmol/L Carbon Dioxide 24 (22-30) mmol/L Anion Gap 15 mmol/L BUN 11 (9-20) mg/dL Creatinine 0.61 L (0.66-1.25) mg/dL Est GFR (CKD-EPI)AfAm >90 (>60 ml/min/1.73 sqM) Est GFR (CKD-EPI)NonAf >90 (>60 ml/min/1.73 sqM) Glucose 144 H (74-99) mg/dL Lactic Ac Sepsis Rflx Plasma Lactic Acid Salbador 2.8 H* (0.7-2.0) mmol/L Calcium 9.3 (8.4-10.2) mg/dL Magnesium 1.8 (1.6-2.3) mg/dL Total Bilirubin 1.4 H (0.2-1.3) mg/dL AST 208 H (17-59) U/L ALT 84 H (4-49) U/L Alkaline Phosphatase 133 H (38-126) U/L Creatine Kinase 64 (55-170) U/L Total Protein 9.0 H (6.3-8.2) g/dL Albumin 4.5 (3.5-5.0) g/dL Influenza Type A (PCR) (Not Detectd) Influenza Type B (PCR) (Not Detectd) RSV (PCR) (Not Detectd) SARS-CoV-2 (PCR) (Not Detectd) 05/27/23 05/27/23 Range/Units 20:04 21:11 WBC (3.8-10.6) k/uL RBC (4.30-5.90) m/uL Hgb (13.0-17.5) gm/dL Hct (39.0-53.0) % MCV (80.0-100.0) fL MCH (25.0-35.0) pg MCHC (31.0-37.0) g/dL RDW (11.5-15.5) % Plt Count (150-450) k/uL MPV Neutrophils % % Lymphocytes % % Monocytes % % Eosinophils % % Basophils % % Neutrophils # (1.3-7.7) k/uL Lymphocytes # (1.0-4.8) k/uL Monocytes # (0-1.0) k/uL Eosinophils # (0-0.7) k/uL Basophils # (0-0.2) k/uL Sodium (137-145) mmol/L Potassium (3.5-5.1) mmol/L Chloride (98-107) mmol/L Carbon Dioxide (22-30) mmol/L Anion Gap mmol/L BUN (9-20) mg/dL Creatinine (0.66-1.25) mg/dL Est GFR (CKD-EPI)AfAm (>60 ml/min/1.73 sqM) Est GFR (CKD-EPI)NonAf (>60 ml/min/1.73 sqM) Glucose (74-99) mg/dL Lactic Ac Sepsis Rflx Y Plasma Lactic Acid Salbador (0.7-2.0) mmol/L Calcium (8.4-10.2) mg/dL Magnesium (1.6-2.3) mg/dL Total Bilirubin (0.2-1.3) mg/dL AST (17-59) U/L ALT (4-49) U/L Alkaline Phosphatase (38-126) U/L Creatine Kinase (55-170) U/L Total Protein (6.3-8.2) g/dL Albumin (3.5-5.0) g/dL Influenza Type A (PCR) Not Detected (Not Detectd) Influenza Type B (PCR) Not Detected (Not Detectd) RSV (PCR) Not Detected (Not Detectd) SARS-CoV-2 (PCR) Not Detected (Not Detectd) Disposition <Brenda Guzman - Last Filed: 05/27/23 19:54> Is patient prescribed a controlled substance at d/c from ED?: No Time of Disposition: 22:37 <Georges Elias - Last Filed: 05/28/23 05:02> Clinical Impression: Leg pain, bilateral, Neuropathy Disposition: HOME SELF-CARE Condition: Good Instructions (If sedation given, give patient instructions): Diabetic Peripheral Neuropathy (ED), Leg Pain (ED) Additional Instructions: Follow-up with PCP. Report back to ER with any new or worsening symptoms. Take Motrin and Tylenol as needed for pain control. Referrals: Lars Santiago MD [Primary Care Provider] - 1-2 days
[2023-05-27 20:51] LABS: Basophils # (A) 0.1 k/uL (0-0.2); Basophils % (A) 1 %; Eosinophils # (A) 0.3 k/uL (0-0.7); Eosinophils % (A) 4 %; HCT 43.2 % (39.0-53.0); HGB 14.5 gm/dL (13.0-17.5); Lymphocytes # (A) 3.4 k/uL (1.0-4.8); Lymphocytes % (A) 37 %; MCH 32.4 pg (25.0-35.0); MCHC 33.5 g/dL (31.0-37.0); MCV 96.6 fL (80.0-100.0); Mean Platelet Volume 7.9; Monocytes # (A) 0.7 k/uL (0-1.0); Monocytes % (A) 7 %; Neutrophils # (A) 4.4 k/uL (1.3-7.7); Neutrophils % (A) 48 %; Platelet Count 127 k/uL (150-450); RBC 4.47 m/uL (4.30-5.90); WBC 9.1 k/uL (3.8-10.6)
[2023-05-27 21:01] LABS: ALT 84 U/L (4-49); AST 208 U/L (17-59); African American GFR (CKD) >90 (>60 ml/min/1.73 sqM); Albumin 4.5 g/dL (3.5-5.0); Alkaline Phosphatase 133 U/L (38-126); Anion Gap 15 mmol/L; Blood Urea Nitrogen 11 mg/dL (9-20); Calcium 9.3 mg/dL (8.4-10.2); Carbon Dioxide 24 mmol/L (22-30); Chloride 107 mmol/L (98-107); Creatine Kinase 64 U/L (55-170); Glucose 144 mg/dL (74-99); Magnesium 1.8 mg/dL (1.6-2.3); Non-African American GFR(CKD) >90 (>60 ml/min/1.73 sqM); Potassium 4.1 mmol/L (3.5-5.1); Sodium 146 mmol/L (137-145); Total Bilirubin 1.4 mg/dL (0.2-1.3)
[2023-05-27] MEDS ORDERED: KETOROLAC 15 MG/ML 1 ML VIAL IVP STA (22:07)
[2023-05-27] MEDS ORDERED: SODIUM CHLORIDE 0.9% 1,000 ML IV ONE (22:16)
[2023-05-27 23:19] VITALS: BP 146/78; PULSE 78; RESP 16; TEMP 98.4
== END 2023-05-27 23:13 | disposition home or self-care (01) ==
LOC: EC 19:34
DX: E11.40 Type 2 diabetes mellitus with diabetic neuropathy, unspecified (principal); K70.10 Alcoholic hepatitis without ascites; I10 Essential (primary) hypertension; E78.5 Hyperlipidemia, unspecified; F17.200 Nicotine dependence, unspecified, uncomplicated; Z20.822 Contact with and (suspected) exposure to COVID-19; Z79.899 Other long term (current) drug therapy; Z86.73 Personal history of transient ischemic attack (TIA), and cerebral infarction without residual deficits; Z90.49 Acquired absence of other specified parts of digestive tract
CPT/HCPCS: 36415; 80053; 82550; 83605; 83735; 85025; 87636; 99283; 96374; 96361; J1885

== ENCOUNTER 2023-10-02 17:40 | Emergency (ER) | payer OTHER ==
[2023-10-02 18:15] VITALS: RESP 18
--- NOTE | 2023-10-02 18:48 | ED ---
Abdominal Pain HPI - General Source: patient, RN notes reviewed Mode of arrival: ambulatory Limitations: no limitations <Viky Stringer - Last Filed: 10/02/23 18:46> <Georges Elias - Last Filed: 10/03/23 04:32> - General Chief Complaint: Abdominal Pain Stated Complaint: Yellow eyes, headache, stomach pain Time Seen by Provider: 10/02/23 18:47 - History of Present Illness Initial Comments: Quick [id number] male with history of alcohol use disorder presenting with abdominal pain for 2 weeks with bodyaches, headaches, and irritated eyes. States he uses alcohol daily but has no known history of liver disease. States the abdominal pain is diffuse and nonspecific. (Viky Stringer) 53-year-old male presenting with chief complaint of jaundice and fatigue. Patient reports symptoms have been ongoing for about a week. Patient is a daily drinker, drinks about a pint per day. Last drink was 2 days ago. He admits to nausea with no vomiting. He has some lower abdominal discomfort, no localized pain. Admits to headache. No chest pain or difficulty breathing. Admits to alternating diarrhea and constipation. No hematochezia or hemoptysis. (Georges Elias) - Related Data Home Medications Medication Instructions Recorded Confirmed Atorvastatin [Lipitor] 10 mg PO DAILY 04/08/21 01/03/22 Famotidine 20 mg PO DAILY 01/03/22 01/03/22 Previous Rx's Medication Instructions Recorded Folic Acid 1 mg PO DAILY #30 tab 01/05/22 Ibuprofen [Motrin] 600 mg PO Q8HR PRN #30 tab 01/05/22 Insulin Glargine,Hum.rec.anlog 10 units SQ DAILY #5 each 01/05/22 [Lantus Solostar Pen] Magnesium Oxide 400 mg PO DAILY #30 tablet 01/05/22 Potassium Chloride ER [K-Dur 20] 20 meq PO DAILY #30 tab 01/05/22 Thiamine [Vitamin B-1] 100 mg PO BID #60 tablet 01/05/22 metFORMIN HCL 1,000 mg PO BID #60 tablet 01/05/22 Allergies Allergy/AdvReac Type Severity Reaction Status Date / Time No Known Allergies Allergy Verified 10/02/23 17:47 Review of Systems ROS Other: All systems not noted in ROS Statement are negative. <Viky Stringer - Last Filed: 10/02/23 18:46> ROS Other: All systems not noted in ROS Statement are negative. <Georges Elias - Last Filed: 10/03/23 04:32> ROS Statement: Those systems with pertinent positive or pertinent negative responses have been documented in the HPI. Past Medical History Past Medical History: CVA/TIA, Diabetes Mellitus, Hyperlipidemia, Hypertension Additional Past Medical History / Comment(s): Two strokes within the past year; testing for cancer History of Any Multi-Drug Resistant Organisms: None Reported Past Surgical History: Appendectomy Past Anesthesia/Blood Transfusion Reactions: No Reported Reaction Past Psychological History: Depression Smoking Status: Current every day smoker Past Alcohol Use History: Abuse, Daily, Heavy Past Drug Use History: None Reported - Past Family History Father Additional Family Medical History / Comment(s): prostate cancer <MykeViky - Last Filed: 10/02/23 18:46> General Exam Limitations: no limitations <MykeViky - Last Filed: 10/02/23 18:46> General appearance: alert, in no apparent distress Head exam: Present: atraumatic, normocephalic Eye exam: Present: EOMI, scleral icterus Neck exam: Present: normal inspection. Absent: meningismus Respiratory exam: Present: normal lung sounds bilaterally. Absent: respiratory distress, wheezes, rales, rhonchi, stridor Cardiovascular Exam: Present: regular rate, normal rhythm, normal heart sounds. Absent: systolic murmur, diastolic murmur, rubs, gallop, clicks GI/Abdominal exam: Present: soft, distended, organomegaly. Absent: tenderness, guarding, rebound, rigid Neurological exam: Present: alert, oriented X3 Psychiatric exam: Present: normal affect, normal mood Skin exam: Present: warm, dry, other (jaundice) <Georges Elias - Last Filed: 10/03/23 04:32> - General Exam Comments Initial Comments: Visual Physical Exam Vital signs reviewed General: Well-appearing, nontoxic, no acute distress. Head: Normocephalic, atraumatic Eyes: PERRLA, EOMI, jaundice present ENT: Airway patent Chest: Nonlabored breathing Skin: No visual rash, normal skin tone Neuro: Alert and oriented 3 Musculoskeletal: No gross abnormalities (Viky Stringer) Course Vital Signs 10/02/23 10/02/23 10/02/23 17:44 20:27 21:05 Temperature 98.2 F 98.3 F Pulse Rate 96 98 86 Respiratory 18 19 18 Rate Blood Pressure 148/76 143/83 121/60 O2 Sat by Pulse 99 96 97 Oximetry 10/02/23 22:19 Temperature 98.2 F Pulse Rate 84 Respiratory 18 Rate Blood Pressure 117/74 O2 Sat by Pulse 97 Oximetry Medical Decision Making <Viky Stringer - Last Filed: 10/02/23 18:46> - Lab Data Result diagrams: 10/02/23 19:41 10/02/23 19:41 <Georges Elias - Last Filed: 10/03/23 04:32> - Medical Decision Making I completed the quick note portion of this chart signed Viky Stringer PA-C (Viky Stringer) Was pt. sent in by a medical professional or institution (RUDDY Smis, DOCUMENTATION CLERK, urgent care, hospital, or fdc...) When possible be specific @ -[No] Did you speak to anyone other than the patient for history (EMS, parent, family, police, friend...)? What history was obtained from this source @ -[No] Did you review nursing and triage notes (agree or disagree)? Why? @ -[I reviewed and agree with nursing and triage notes] Were old charts reviewed (outside hosp., previous admission, EMS record, old EKG, old radiological studies, urgent care reports/EKG's, fdc records)? Report findings @ -[No old charts were reviewed] Differential Diagnosis (chest pain, altered mental status, abdominal pain women, abdominal pain men, vaginal bleeding, weakness, fever, dyspnea, syncope, headache, dizziness, GI bleed, back pain, seizure, CVA, palpatations, mental health, musculoskeletal)? @ -[facility] Differential Weakness: Hypoglycemia, shock, sepsis, hyponatremia, anemia, infection, OR, ETOH, adverse medicine reaction, overdose, stroke. ... This is not meant to be an all- inclusive list EKG interpreted by me (3pts min.). @ -[As above] X-rays interpreted by me (1pt min.). @ -[None done] CT interpreted by me (1pt min.). @ -[None done] U/S interpreted by me (1pt. min.). @ -[None done] What testing was considered but not performed or refused? (CT, X-rays, U/S, labs)? Why? @ -[None] What meds were considered but not given or refused? Why? @ -[None] Did you discuss the management of the patient with other professionals (professionals i.e. , PA, DOCUMENTATION CLERK, lab, RT, psych nurse, social work supervisor, linux network systems administrator, teacher, loan service officer, case filler)? Give summary @ -[No] Was smoking cessation discussed for >3mins.? @ -[No] Was critical care preformed (if so, how long)? @ -[No] Were there social determinants of health that impacted care today? How? (Homele ssness, low income, unemployed, alcoholism, drug addiction, transportation, low edu. Level, literacy, decrease access to med. care, correction, rehab)? @ -[No] Was there de-escalation of care discussed even if they declined (Discuss DNR or withdrawal of care, Hospice)? DNR status @ -[No] What co-morbidities impacted this encounter? (DM, HTN, Smoking, COPD, CAD, Cancer, CVA, ARF, Chemo, Hep., AIDS, mental health diagnosis, sleep apnea, morbid obesity)? @ -[None] Was patient admitted / discharged? Hospital course, mention meds given and route, prescriptions, significant lab abnormalities, going to OR and other pertinent info. @ -53-year-old male presenting with chief complaint of jaundice and generalized weakness. History of alcohol use disorder, drinks a pint daily, last drink was 2 days ago. History and physical exam are conducted. Patient is jaundiced on exam. Hepatomegaly felt on abdominal exam. Bilirubin 20.3. AST 427. ALT 93. Alkaline phosphatase 159. Lipase is 333. Magnesium is 1.3. Patient has macrocytic anemia. Elevated PT/INR and PTT. Labs suggestive of severe cirr hosis induced liver failure. Patient will require transfer to a facility with GI services. Patient will be transferred to [facility]. He is agreeable with this plan. I discussed this case with my attending Dr. Barton Undiagnosed new problem with uncertain prognosis? @ -[No] Drug Therapy requiring intensive monitoring for toxicity (Heparin, Nitro, Insulin, Cardizem)? @ -[No] Were any procedures done? @ -[No] Diagnosis/symptom? @ -Cirrhosis Acute, or Chronic, or Acute on Chronic? @ -Acute Uncomplicated (without systemic symptoms) or Complicated (systemic symptoms)? @ -Complicated Side effects of treatment? @ -[No] Exacerbation, Progression, or Severe Exacerbation? @ -[No] Poses a threat to life or bodily function? How? (Chest pain, USA, [place], pneumonia, PE, COPD, DKA, ARF, appy, cholecystitis, CVA, Diverticulitis, Homicidal, Suicidal, threat to staff... and all critical care pts) @ -Yes (Georges Elias) - Lab Data Lab Results 10/02/23 10/02/23 10/02/23 Range/Units 19:41 19:41 19:41 WBC 8.5 (3.8-10.6) k/uL RBC 3.42 L (4.30-5.90) m/uL Hgb 12.3 L (13.0-17.5) gm/dL Hct 36.9 L (39.0-53.0) % MCV 107.8 H (80.0-100.0) fL MCH 35.8 H (25.0-35.0) pg MCHC 33.2 (31.0-37.0) g/dL RDW 15.9 H (11.5-15.5) % Plt Count 84 L (150-450) k/uL MPV 10.2 Neutrophils % 77 % Lymphocytes % 14 % Monocytes % 7 % Eosinophils % 1 % Basophils % 1 % Neutrophils # 6.5 (1.3-7.7) k/uL Lymphocytes # 1.2 (1.0-4.8) k/uL Monocytes # 0.6 (0-1.0) k/uL Eosinophils # 0.1 (0-0.7) k/uL Basophils # 0.0 (0-0.2) k/uL Manual Slide Review Performed Polychromasia Present Macrocytosis Marked A Target Cells Present Rouleaux Present PT 20.0 H (10.0-12.5) sec INR 2.0 H (<1.2) APTT 35.4 H (22.0-30.0) sec Sodium 136 L (137-145) mmol/L Potassium 3.8 (3.5-5.1) mmol/L Chloride 101 (98-107) mmol/L Carbon Dioxide 24 (22-30) mmol/L Anion Gap 11 mmol/L BUN 16 (9-20) mg/dL Creatinine 0.63 L (0.66-1.25) mg/dL Est GFR (CKD-EPI)AfAm >90 (>60 ml/min/1.73 sqM) Est GFR (CKD-EPI)NonAf >90 (>60 ml/min/1.73 sqM) Glucose 162 H (74-99) mg/dL Lactic Ac Sepsis Rflx Plasma Lactic Acid Salbador (0.7-2.0) mmol/L Calcium 8.7 (8.4-10.2) mg/dL Phosphorus 3.6 (2.5-4.5) mg/dL Magnesium 1.3 L (1.6-2.3) mg/dL Total Bilirubin 20.3 H* (0.2-1.3) mg/dL AST 427 H (17-59) U/L ALT 93 H (4-49) U/L Alkaline Phosphatase 159 H (38-126) U/L Ammonia (<30) umol/L Total Protein 9.0 H (6.3-8.2) g/dL Albumin 3.4 L (3.5-5.0) g/dL Lipase 333 H (23-300) U/L 10/02/23 10/02/23 Range/Units 19:41 20:15 WBC (3.8-10.6) k/uL RBC (4.30-5.90) m/uL Hgb (13.0-17.5) gm/dL Hct (39.0-53.0) % MCV (80.0-100.0) fL MCH (25.0-35.0) pg MCHC (31.0-37.0) g/dL RDW (11.5-15.5) % Plt Count (150-450) k/uL MPV Neutrophils % % Lymphocytes % % Monocytes % % Eosinophils % % Basophils % % Neutrophils # (1.3-7.7) k/uL Lymphocytes # (1.0-4.8) k/uL Monocytes # (0-1.0) k/uL Eosinophils # (0-0.7) k/uL Basophils # (0-0.2) k/uL Manual Slide Review Polychromasia Macrocytosis Target Cells Rouleaux PT (10.0-12.5) sec INR (<1.2) APTT (22.0-30.0) sec Sodium (137-145) mmol/L Potassium (3.5-5.1) mmol/L Chloride (98-107) mmol/L Carbon Dioxide (22-30) mmol/L Anion Gap mmol/L BUN (9-20) mg/dL Creatinine (0.66-1.25) mg/dL Est GFR (CKD-EPI)AfAm (>60 ml/min/1.73 sqM) Est GFR (CKD-EPI)NonAf (>60 ml/min/1.73 sqM) Glucose (74-99) mg/dL Lactic Ac Sepsis Rflx Y Plasma Lactic Acid Salbador 2.9 H* (0.7-2.0) mmol/L Calcium (8.4-10.2) mg/dL Phosphorus (2.5-4.5) mg/dL Magnesium (1.6-2.3) mg/dL Total Bilirubin (0.2-1.3) mg/dL AST (17-59) U/L ALT (4-49) U/L Alkaline Phosphatase (38-126) U/L Ammonia 19 (<30) umol/L Total Protein (6.3-8.2) g/dL Albumin (3.5-5.0) g/dL Lipase (23-300) U/L Disposition <Viky Stringer - Last Filed: 10/02/23 18:46> Time of Disposition: 21:19 - Out of Hospital Transfer - Req. Specs Out of Hospital Transfer - Requested Specifics: Other Emergency Center ([facility]) <Georges Elias - Last Filed: 10/03/23 04:32> Clinical Impression: Jaundice, Cirrhosis, Liver failure, Alcohol use disorder Disposition: OTHER INSTITUTION NOT DEFINED Condition: Serious Referrals: Lars Santiago MD [Primary Care Provider] - 1-2 days
[2023-10-02] MEDS: SODIUM CHLORIDE 0.9% 500 ML 500 ML IV ONE (19:47)
[2023-10-02 20:06] LABS: Basophils % (A) 1 %; Eosinophils # (A) 0.1 k/uL (0-0.7); Eosinophils % (A) 1 %; HCT 36.9 % (39.0-53.0); HGB 12.3 gm/dL (13.0-17.5); Lymphocytes # (A) 1.2 k/uL (1.0-4.8); Lymphocytes % (A) 14 %; MCH 35.8 pg (25.0-35.0); MCHC 33.2 g/dL (31.0-37.0); MCV 107.8 fL (80.0-100.0); Macrocytosis Marked; Mean Platelet Volume 10.2; Monocytes # (A) 0.6 k/uL (0-1.0); Monocytes % (A) 7 %; Neutrophils # (A) 6.5 k/uL (1.3-7.7); Neutrophils % (A) 77 %; RBC 3.42 m/uL (4.30-5.90); RDW 15.9 % (11.5-15.5); WBC 8.5 k/uL (3.8-10.6)
[2023-10-02 20:11] LABS: African American GFR (CKD) >90 (>60 ml/min/1.73 sqM); Albumin 3.4 g/dL (3.5-5.0); Alkaline Phosphatase 159 U/L (38-126); Anion Gap 11 mmol/L; Blood Urea Nitrogen 16 mg/dL (9-20); Calcium 8.7 mg/dL (8.4-10.2); Carbon Dioxide 24 mmol/L (22-30); Chloride 101 mmol/L (98-107); Glucose 162 mg/dL (74-99); Lipase 333 U/L (23-300); Non-African American GFR(CKD) >90 (>60 ml/min/1.73 sqM); Sodium 136 mmol/L (137-145)
[2023-10-02 20:15] LABS: Lactic Acid, Venous 2.9 mmol/L (0.7-2.0)
[2023-10-02 20:16] LABS: Magnesium 1.3 mg/dL (1.6-2.3); Phosphorus 3.6 mg/dL (2.5-4.5); Potassium 3.8 mmol/L (3.5-5.1); Total Bilirubin 20.3 mg/dL (0.2-1.3)
[2023-10-02 20:17] LABS: ALT 93 U/L (4-49); AST 427 U/L (17-59)
[2023-10-02 20:20] LABS: Partial Thromboplastin Time 35.4 sec (22.0-30.0)
[2023-10-02 20:46] LABS: Platelet Count 84 k/uL (150-450); Polychromasia Present; Rouleaux Present; Target Cells Present
[2023-10-02] MEDS: MAGNESIUM SULFATE-D5W PMX 1 GM in DEXTROSE/WATER 1 100ML.BAG IVPB ONE (21:25)
[2023-10-02 22:45] VITALS: BP 117/74; PULSE 84; TEMP 98.2
== END 2023-10-02 22:20 | disposition other institution (70) ==
LOC: EC 17:40
DX: K74.60 Unspecified cirrhosis of liver (principal); K72.90 Hepatic failure, unspecified without coma; F10.90 Alcohol use, unspecified, uncomplicated
CPT/HCPCS: 36415; 80053; 82140; 83605; 83690; 83735; 84100; 85025; 85610; 85730; 99285; 96365; J3475